=== PATIENT | male | born 1955 | race Caucasian/White ===

== ENCOUNTER 2018-07-03 09:48 | Day surgery (SDC) | payer OTHER ==
[2018-07-02 08:46] VITALS: BMI 38.4
[~2018-07-03 09:48] MED LIST: DEXAMETHASONE SOD PHOSPHATE 10 MG/ML 1 ML VIAL IV ONE; HYDROmorphone 0.5 MG/0.5 ML SYRINGE IVP PRN; LACTATED RINGERS 1,000 ML IV SCH; LIDOCAINE 1% 20 ML VIAL (10MG/ML) FOR IV START INTRADERMA PRN; ONDANSETRON 4 MG/2 ML VIAL IVP ONE; SCOPOLAMINE 1.5MG/72HR PATCH TRANSDERM ONE
[2018-07-03 10:06] VITALS: RESP 16; TEMP 98.6
[2018-07-03] MEDS ORDERED: PROPOFOL 10 MG/ML 20 ML VIAL IV ONE (10:21)
[2018-07-03] MEDS ORDERED: LIDOCAINE 1% INJ 10MG/ML (20 ML MDV) ONE (10:21)
--- NOTE | 2018-07-03 10:38 | P.OP ---
Date of Procedure: 07/03/18 Preoperative Diagnosis: Epigastric pain GERD Postoperative Diagnosis: Gastritis Duodenitis Mild hiatal hernia Procedure(s) Performed: EGD with biopsy Anesthesia: other (Sedation) Surgeon: Shelia Anna Pathology: other (Biopsies of esophagus, antrum, duodenum) Condition: stable Disposition: same day Indications for Procedure: 63-year-old male with complaints of gastroesophageal reflux disease and epigastric pain, sometimes left upper quadrant pain. Plan today is for an upper endoscopy for further evaluation of reflux and to rule out peptic ulcer disease. The patient was excellent the risks, benefits and alternatives to the procedure provided consent prior to attending the endoscopy suite. Operative Findings: Gastritis Duodenitis Mild hiatal hernia Description of Procedure: The patient was brought into the endoscopy suite and placed in the left lateral decubitus position and adequate sedation was achieved. An endoscope was then placed in the oropharynx and advanced under endoscopic visualization. The esophagus was intubated. The endoscope was advanced to the gastric antrum and through the pylorus and up to the third portion of the duodenum. The endoscope was then withdrawn slowly. The first second and third portions of the duodenum did have some inflammatory changes. Biopsies were taken. The pylorus was normal. The antrum was endoscopically noted to have some inflammatory changes. Biopsies were taken. The gastric body distended normally and the gastric folds appeared normal and flattened with insufflation. A retroflexed view of the fundus and GE junction revealed a mild hiatal hernia. The esophagus appeared endoscopically normal and biopsies were taken. Excess air was removed and the endoscope was withdrawn. The patient was assessed and was in satisfactory condition at the termination of the procedure. The patient was transferred to the postanesthesia recovery unit.
[2018-07-03 10:59] VITALS: BP 131/76; PULSE 65
== END 2018-07-03 11:24 | disposition home or self-care (01) ==
LOC: ORWHC2ENDO 09:48
PROVIDERS: ATTEND Surgery
DX: K29.80 Duodenitis without bleeding (principal); K31.9 Disease of stomach and duodenum, unspecified; K21.0 Gastro-esophageal reflux disease with esophagitis; K29.70 Gastritis, unspecified, without bleeding; K44.9 Diaphragmatic hernia without obstruction or gangrene; I10 Essential (primary) hypertension; G47.33 Obstructive sleep apnea (adult) (pediatric); Z79.899 Other long term (current) drug therapy
CPT/HCPCS: 88305; 43239; J2001; J2704

== ENCOUNTER 2019-02-12 08:12 | Day surgery (SDC) | payer OTHER ==
[2019-01-25 16:17] VITALS: BMI 33.6
[~2019-02-12 08:12] MED LIST changes: -DEXAMETHASONE SOD PHOSPHATE 10 MG/ML 1 ML VIAL IV ONE; -HYDROmorphone 0.5 MG/0.5 ML SYRINGE IVP PRN; -ONDANSETRON 4 MG/2 ML VIAL IVP ONE; -SCOPOLAMINE 1.5MG/72HR PATCH TRANSDERM ONE
[2019-02-12 08:40] VITALS: TEMP 97
[2019-02-12] MEDS ORDERED: LIDOCAINE 1% INJ 10MG/ML (20 ML MDV) ONE (09:09)
[2019-02-12] MEDS ORDERED: PROPOFOL 10 MG/ML 20 ML VIAL IV ONE (09:09)
[2019-02-12 10:02] VITALS: PULSE 54
--- NOTE | 2019-02-12 10:19 | P.PCN ---
Date of Procedure: 02/12/19 Description of Procedure: BRIEF HISTORY: 63-year-old male patient who presents for outpatient colonoscopy. The patient reports his last colonoscopy was in 2011 and no polyps were found at that time but he does have a history of polyps in the past. He reports that last EGD was in April 2018. He reports that he has been anemic and colonoscopy was 2 further investigation of the anemia. No abdominal pain, blood per rectum or change in bowel habits reported. PROCEDURE PERFORMED: Colonoscopy with polypectomy, biopsy and tattoo. PREOPERATIVE DIAGNOSIS: Anemia, history of colon polyps, last colonoscopy 2011. ESTIMATED BLOOD LOSS: Minimal. IV sedation per Anesthesia. PROCEDURE: After informed consent was obtained, the patient, was brought into the endoscopy unit. IV sedation was administered by Anesthesia under continuous monitoring. Digital rectal examination was normal. Initially the Olympus CF-190 flexible video colonoscope was then inserted in the rectum, gradually advanced into the cecum without any difficulty. Careful examination was performed as the scope was gradually being withdrawn. Ileocecal valve and the appendiceal orifice were visualized and appeared normal. Prep was fair with liquid and solid stool throughout the whole colon prohibiting complete visualization of mucosa. A flat mass was noted in the ascending colon encompassing approximately 30% of the mucosa with erythema and friability noted highly suggestive of a malignancy. The ascending colon mass was biopsied and tattoos were placed distally and proximally to the mass with a total of 4 mL of ink injected. A 1.2 cm pedunculated sigmoid polyp was removed with hot snare polypectomy. 3 smaller sigmoid polyp polyps measuring 3-6 mm in size were removed with cold snare polypectomy. Pandiverticulosis worse in the sigmoid colon. Mild internal hemorrhoids.. Retroflexion was performed in the rectum and no lesions were seen. The patient tolerated the procedure well. IMPRESSION: Ascending colon mass suspicious for malignancy, biopsied and tattooed. Pedunculated sigmoid polyp removed with hot snare. 3 small sigmoid polyps removed with cold snare. Pandiverticulosis. Mild internal hemorrhoids. RECOMMENDATIONS: Findings of this examination were discussed with the patient and his . Will arrange for referral to surgery service and informed the patient's primary care physician. Await pathology from biopsies.
[2019-02-12 10:21] VITALS: BP 123/79; RESP 18
== END 2019-02-12 11:05 | disposition home or self-care (01) ==
LOC: ORWHC2ENDO 08:12
PROVIDERS: ATTEND Internal Medicine
DX: C18.2 Malignant neoplasm of ascending colon (principal); D12.5 Benign neoplasm of sigmoid colon; K57.30 Diverticulosis of large intestine without perforation or abscess without bleeding; K64.8 Other hemorrhoids; D64.9 Anemia, unspecified; Z86.010 Personal history of colon polyps; I10 Essential (primary) hypertension; J45.909 Unspecified asthma, uncomplicated; G47.33 Obstructive sleep apnea (adult) (pediatric); N42.9 Disorder of prostate, unspecified; K21.9 Gastro-esophageal reflux disease without esophagitis; Z79.82 Long term (current) use of aspirin; Z79.899 Other long term (current) drug therapy; Z98.890 Other specified postprocedural states
CPT/HCPCS: 88305; 45380; 45385; 45381; J2001; J2704; 44404

== ENCOUNTER → 2019-02-20 | Outpatient (CLI) | payer OTHER ==
--- NOTE | 2019-02-20 16:37 | CT ---
EXAMINATION TYPE: CT ChestAbdPelvis w con DATE OF EXAM: 02/20/2019 COMPARISON: None HISTORY: colon ca CT DLP: 1862 mGycm CONTRAST: CT scan of the chest, abdomen and pelvis is performed with Oral Contrast and with IV Contrast, patien t injected with 100 mL of Isovue 300. CT Chest: LUNGS: The lungs are clear and free of infiltrate or atelectasis. No pulmonary nodule or mass is det ected. No pleural effusion or CT evidence of interstitial lung disease. MEDIASTINUM: Thoracic aorta is of normal caliber. The heart is not enlarged. No evidence for media stinal mass or adenopathy. HILAR STRUCTURES: No evidence for mass. No hilar adenopathy is appreciated. OTHER: No significant abnormality. CONTRAST CT ABDOMEN AND PELVIS FINDINGS: LIVER/GB: No calcified gallstones. Hypoattenuating hepatic lesions less than 1 cm in size are too s mall to characterize. They likely reflect small cysts of the lesions are difficult to exclude. Consid er ultrasound correlation. Biliary tree is of normal caliber. PANCREAS: No inflammation. No distinct mass. SPLEEN: No splenic enlargement. No lesion seen. ADRENALS: No nodule. No thickening. KIDNEYS/BLADDER: No hydronephrosis. No nephrolithiasis. Solid appearing mass mid pole right kidney measuring 2.5 cm. Malignancy is not excluded. Further characterization with ultrasound is also advise d. Probable simple cyst midpole left kidney. BOWEL: Normal appendix. Wall thickening mid ascending co caden may reflect patient's site of known malignancy. Adjacent lymph node identified measuring 1.2 cm. No additional left colonic lesion suspected. No obstructive change. No free air. GENITAL ORGANS: Prostate gland enlargement. LYMPH NODES: No greater than 1cm abdominal or pelvic lymph nodes are appreciated. AORTA: No significant abnormality. OSSEOUS STRUCTURES: No significant abnormality is seen. OTHER: No significant additional abnormality is seen. IMPRESSION: 1. Wall thickening mid ascending colon with adjacent lymph node may reflect the patient's known site of malignancy. Correlate clinically. 2. Solid appearing mass of mid pole right kidney. Malignancy is not excluded. Further evaluation with ultrasound is advised. 3. Lesions of the liver too small to appropriately characterize. Ultrasound correlation advised. [place] static disease not excluded.
== END | disposition home or self-care (01) ==
LOC: RADCTMAIN 14:12
PROVIDERS: ATTEND Surgery
DX: N28.89 Other specified disorders of kidney and ureter (principal); C18.9 Malignant neoplasm of colon, unspecified
CPT/HCPCS: 71260; 74177; Q9967

== ENCOUNTER → 2019-02-25 | Outpatient (CLI) | payer OTHER ==
[2019-02-25 07:51] LABS: Anisocytosis Slight; HCT 40.4 % (39.0-53.0); HGB 12.4 gm/dL (13.0-17.5); Hypochromasia Moderate; MCH 24.9 pg (25.0-35.0); MCHC 30.7 g/dL (31.0-37.0); MCV 81.2 fL (80.0-100.0); Mean Platelet Volume 8.1; Microcytosis Slight; Platelet Count 310 k/uL (150-450); RBC 4.98 m/uL (4.30-5.90); RDW 18.8 % (11.5-15.5); WBC 8.7 k/uL (3.8-10.6)
[2019-02-25 08:01] LABS: Potassium 4.6 mmol/L (3.5-5.1)
== END | disposition home or self-care (01) ==
LOC: LABPAT 06:52
PROVIDERS: ATTEND Surgery
DX: Z01.812 Encounter for preprocedural laboratory examination (principal); C18.9 Malignant neoplasm of colon, unspecified; Z79.899 Other long term (current) drug therapy
CPT/HCPCS: 36415; 80051; 85027

== ENCOUNTER 2019-02-28 10:48 | Inpatient (IN) | payer OTHER ==
[~2019-02-28 10:48] MED LIST changes: +ALVIMOPAN 12 MG CAPSULE PO ONE; +DEXAMETHASONE SOD PHOSPHATE 10 MG/ML 1 ML VIAL IV ONE; +HEPARIN SODIUM,PORCINE 5,000 UNIT/ML 1 ML VIAL SQ ONE; +HYDROmorphone 0.5 MG/0.5 ML SYRINGE IVP PRN; +MIDAZOLAM 2 MG/2 ML VIAL IV PRN; +ONDANSETRON 4 MG/2 ML VIAL IVP ONE; +SCOPOLAMINE 1.5MG/72HR PATCH TRANSDERM ONE
[2019-02-28] MEDS ORDERED: ROCURONIUM BROMIDE 10 MG/ML 10 ML VIAL IV ONE (12:22)
[2019-02-28] MEDS ORDERED: GLYCOPYRROLATE 0.2 MG/ML 2 ML VIAL ONE (12:22)
[2019-02-28] MEDS ORDERED: MIDAZOLAM 2 MG/2 ML VIAL ONE (12:22)
[2019-02-28] MEDS ORDERED: SUCCINYLCHOLINE CHLORIDE 100 MG/5 ML SYR IV ONE (12:22)
[2019-02-28] MEDS ORDERED: NEOSTIGMINE 1 MG/ML 10 ML VIAL ONE (12:22)
[2019-02-28] MEDS ORDERED: CHLOROPROCAINE 3% 30 MG/ML 20 ML VIAL ONE (12:22)
[2019-02-28] MEDS ORDERED: PROPOFOL 10 MG/ML 20 ML VIAL IV ONE (12:22)
[2019-02-28] MEDS ORDERED: fentaNYL (PF) 50 MCG/ML 2 ML AMP ONE (12:22)
[2019-02-28] MEDS ORDERED: HYDROmorphone (PF) 1 MG/ML ONE (12:22)
[2019-02-28] MEDS ORDERED: LIDOCAINE 1% INJ 10MG/ML (20 ML MDV) ONE (12:22)
[2019-02-28] MEDS ORDERED: ePHEDrine SULFATE/0.9% NACL/PF 50 MG/5 ML SYRINGE IV ONE (12:22)
[2019-02-28] MEDS: metroNIDAZOLE-NS PMX 500 MG in SALINE 1 100ML.BAG IVPB ONE ×2 (13:00→13:01)
[2019-02-28] MEDS ORDERED: LACTATED RINGERS 1,000 ML IV ONE ×2 (13:06)
[2019-02-28] MEDS ORDERED: NALOXONE 0.4 MG/ML 1 ML VIAL IV PRN (13:49)
[2019-02-28] MEDS: ROPIVACAINE 250 MG, HYDROMORPHONE (PF) 5 MG in SODIUM CHLORIDE 0.9% 200 ML EPIDURAL PRN ×2 (14:36→15:34)
--- NOTE | 2019-02-28 14:39 | P.OP ---
Date of Procedure: 02/28/19 Preoperative Diagnosis: Adenocarcinoma of colon Postoperative Diagnosis: Adenocarcinoma of colon Ascites Procedure(s) Performed: Open right hemicolectomy with anastomosis Anesthesia: GISSELLE Surgeon: Shelia Anna Pathology: other (Right colon, ascitic fluid) Condition: stable Disposition: floor Indications for Procedure: This is a 63-year-old male that presented to the surgery clinic after having a recent colonoscopy with a chronic mass in the right colon. Biopsies were taken and this was proven to be adenocarcinoma. CT of the abdomen and pelvis was also performed that did show a lymph node in the region of this area along with a solid renal mass. The patient was planned to have a right hemicolectomy. He was explained the risks, benefits and alternatives to the procedure did provide consent prior to attending the operating suite. Operative Findings: Mild amount of ascites noted in the abdomen, this was sampled for cytology Tattooed area of right colon was clearly noted Description of Procedure: The patient was brought into the operating suite and placed in the supine position on the operating table. Gen. anesthesia was administered and the patient underwent endotracheal intubation. The patient was then prepped and draped in usual sterile fashion. A midline laparotomy incision was made with a #10 blade scalpel and the subcutaneous tissues were with electrocautery towards the anterior abdominal fascia. The fascia was divided and the fascial incision was carried along the length of the skin incision. The intra-abdominal cavity was then examined. The right colon was clearly visualized and tattoo was noted in the middle aspect of the right colon. Straw- colored Fluid was also noted within the abdomen and this was sampled for cytology. The colon was then mobilized along the line of Toldt down to the right gutter. The entire ileocecal region up to the transverse colon was mobilized into the field off of the retroperitoneum. The right ureter was clearly visualized along with the duodenal sweep. A window was made proximal to the ileocecal valve and a RAYA 75 was fired across the ileum. Next, a second RAYA device was fired across the mid transverse colon just sparing the middle colic artery. The dissection was then carried down along the mesentery, down to the root of the mesentery. The mesentery vessels were ligated using LigaSure device. He remaining mesenteric attachments were divided with the LigaSure device. There was no evidence of any further bleeding. Next, a itsg-mk-oapn anastomosis was performed between the transverse colon and the terminal ileum. An enterotomy and a colotomy were created and a third RAYA-75 device was fired to create a ccrp-ge-ycgr anastomosis. The remaining enterotomy was then closed with a TX 60 stapler. The anastomosis was palpated and was noted to be patent. The TX staple line was imbricated using multiple 3-0 Vicryl sutures. Next, the intramedullary cavity was thoroughly irrigated with saline and the anastomosis was carried into the right gutter. Omentum was used to cover the intestines. The abdominal wall was reapproximated by closing the fascial layer with looped PDS suture. Skin was then closed with skin man. The patient was awakened in the operating suite and taken to postanesthesia care unit in stable condition.
[2019-02-28] MEDS ORDERED: ALBUTEROL NEBULIZED 2.5 MG/3 ML INHALATION PRN (15:25)
[2019-02-28 16:23] VITALS: BMI 33.3
[2019-02-28] MEDS: LACTATED RINGERS 1,000 ML IV SCH ×2 (17:25→23:46)
[2019-02-28] MEDS: METOCLOPRAMIDE 5 MG/ML 2 ML VIAL IVP SCH ×2 (18:07→23:45)
[2019-02-28] MEDS: TAMSULOSIN 0.4 MG CAP.ER.24H PO SCH (21:03)
[2019-02-28] MEDS: FAMOTIDINE 20 MG/2 ML VIAL IV SCH (21:03)
[2019-02-28] MEDS: LORATADINE 10 MG TAB PO SCH (21:04)
[2019-02-28] MEDS: ALVIMOPAN 12 MG CAPSULE PO SCH (21:04)
[2019-03-01] MEDS: LACTATED RINGERS 1,000 ML IV SCH ×3 (06:29→20:31)
[2019-03-01] MEDS: METOCLOPRAMIDE 5 MG/ML 2 ML VIAL IVP SCH ×4 (06:30→23:02)
[2019-03-01 07:16] LABS: Anisocytosis Slight; Basophils % (A) 0 %; Eosinophils % (A) 0 %; HGB 10.7 gm/dL (13.0-17.5); Hypochromasia Slight; Lymphocytes # (A) 2.1 k/uL (1.0-4.8); Lymphocytes % (A) 15 %; MCH 24.3 pg (25.0-35.0); MCHC 30.5 g/dL (31.0-37.0); MCV 79.8 fL (80.0-100.0); Mean Platelet Volume 7.8; Microcytosis Slight; Monocytes # (A) 0.7 k/uL (0-1.0); Monocytes % (A) 6 %; Neutrophils # (A) 10.6 k/uL (1.3-7.7); Neutrophils % (A) 78 %; Platelet Count 283 k/uL (150-450); RBC 4.38 m/uL (4.30-5.90); RDW 18.6 % (11.5-15.5); WBC 13.5 k/uL (3.8-10.6)
[2019-03-01 07:46] LABS: African American GFR (CKD) >90 (>60 ml/min/1.73 sqM); Anion Gap 8 mmol/L; Blood Urea Nitrogen 15 mg/dL (9-20); Calcium 8.9 mg/dL (8.4-10.2); Carbon Dioxide 26 mmol/L (22-30); Chloride 105 mmol/L (98-107); Glucose 101 mg/dL (74-99); Non-African American GFR(CKD) >90 (>60 ml/min/1.73 sqM); Potassium 4.4 mmol/L (3.5-5.1); Sodium 139 mmol/L (137-145)
[2019-03-01] MEDS: TAMSULOSIN 0.4 MG CAP.ER.24H PO SCH ×2 (08:35→20:31)
[2019-03-01] MEDS: ALVIMOPAN 12 MG CAPSULE PO SCH ×2 (08:35→20:31)
[2019-03-01] MEDS: FAMOTIDINE 20 MG/2 ML VIAL IV SCH (08:35)
[2019-03-01] MEDS: MULTIVITAMINS, THERA 1 EACH TAB PO SCH (08:35)
[2019-03-01] MEDS: ASPIRIN 81 MG PO SCH (08:35)
[2019-03-01] MEDS: ENOXAPARIN 40 MG/0.4 ML SYRINGE SQ SCH (08:35)
--- NOTE | 2019-03-01 08:36 | P.PN ---
Progress Note - Text 03/01 659am 63-year-old male status post right hemicolectomy by Dr. Anna. Patient has an epidural catheter for postop pain control with the solution running at 8 mL an hour with a VAS of 1. His only complaint is numbness in his left thigh, I offered to decrease the rate to 6 mL an hour but the patient wants to continue the present rate of infusion.
--- NOTE | 2019-03-01 11:31 | P.PN ---
Subjective Progress Note Date: 03/01/19 Patient seen and examined at bedside. States pain is well-controlled. is also at bedside. Denies any flatus or bowel movement. He has been out of bed to the chair. Sanchez in place. Epidural in place. Objective - Vital Signs Vital signs: Vital Signs Temp 97.9 F 03/01/19 07:23 Pulse 70 03/01/19 07:23 Resp 15 03/01/19 07:23 BP 111/65 03/01/19 07:23 Pulse Ox 96 03/01/19 07:23 Intake & Output 02/28/19 03/01/19 03/01/19 18:59 06:59 18:59 Intake Total 1918 700 180 Output Total 175 650 Balance 1743 50 180 Intake: IV 1918 Oral 700 180 Output: Urine 150 650 Estimated Blood Loss 25 Other: Voiding Method Indwelling Catheter - Constitutional General appearance: Present: cooperative, no acute distress - EENT Eyes: Present: PERRLA - Respiratory Details: No difficulty with respiration - Gastrointestinal Gastrointestinal Comment(s): Soft, appropriate tenderness, nondistended, no rebound, no guarding, midline incision with surgical dressing in place - Psychiatric Psychiatric: Present: A&O x's 3 - Labs CBC & Chem 7: 03/01/19 06:36 03/01/19 06:35 Labs: Abnormal Lab Results - Last 24 Hours (Table) 03/01/19 03/01/19 Range/Units 06:35 06:36 WBC 13.5 H (3.8-10.6) k/uL Hgb 10.7 L (13.0-17.5) gm/dL Hct 35.0 L (39.0-53.0) % MCV 79.8 L (80.0-100.0) fL MCH 24.3 L (25.0-35.0) pg MCHC 30.5 L (31.0-37.0) g/dL RDW 18.6 H (11.5-15.5) % Neutrophils # 10.6 H (1.3-7.7) k/uL Glucose 101 H (74-99) mg/dL Assessment and Plan (1) Colon cancer Narrative/Plan: Postoperative day #1, right hemicolectomy - Increase activity as tolerated - Continue clear liquid diet - Continue Sanchez catheter while epidural is in place - Medical consultation was placed, appreciate recommendations - Progressing slowly Current Visit: Yes Status: Acute Code(s): C18.9 - MALIGNANT NEOPLASM OF COLON, UNSPECIFIED SNOMED Code(s): 475562343
--- NOTE | 2019-03-01 14:34 | P.CONS ---
History of Present Illness - Reason for Consult Leukocytosis - History of Present Illness Patient is a very pleasant 63-year-old gentleman was admitted for ALLERGIC to colectomy for adenocarcinoma of the colon. Patient's x-ray underwent surgery and had end-to-end anastomosis doesn't have a colostomy bag or a drain in place. Patient is feeling well denied any fever chills nausea vomiting patient does have leukocytosis which is reactive in nature. Patient did pass gas did not move his bowel yet. Patient is in couple antidepressant medications which will be held to avoid perioperative hypotension Review of Systems REVIEW OF SYSTEMS: CONSTITUTIONAL: No fever, no malaise, no fatigue. HEENT: No recent visual problems or hearing problems. Denied any sore throat. CARDIOVASCULAR: No chest pain, orthopnea, PND, no palpitations, no syncope. PULMONARY: No shortness of breath, no cough, no hemoptysis. GASTROINTESTINAL: No diarrhea, no nausea, no vomiting, no abdominal pain. NEUROLOGICAL: No headaches, no weakness, no numbness. HEMATOLOGICAL: Denies any bleeding or petechiae. GENITOURINARY: Denies any burning micturition, frequency, or urgency. MUSCULOSKELETAL/RHEUMATOLOGICAL: Denies any joint pain, swelling, or any muscle pain. ENDOCRINE: Denies any polyuria or polydipsia. The rest of the 14-point review of systems is negative. Past Medical History Past Medical History: Asthma, GERD/Reflux, Hypertension, Prostate Disorder, Skin Disorder, Sleep Apnea/CPAP/BIPAP Additional Past Medical History / Comment(s): MILD ASTHMA. GERD RESOLVED. CURRENT LOW HGB, IRON LEVELS. DERMATITIS SCALP COND. USES BIPAP. History of Any Multi-Drug Resistant Organisms: None Reported Past Surgical History: Hernia Repair Additional Past Surgical History / Comment(s): BILAT BIG TOE FUSIONS. NELLY EYE RADIAL KERATOTOMY. HERNIA, AGE 3. BILAT CTR. COLONOSCOPY. EGD Past Anesthesia/Blood Transfusion Reactions: No Reported Reaction Additional Past Anesthesia/Blood Transfusion Reaction / Comm: NO BLOOD TRANSFUSION Past Psychological History: No Psychological Hx Reported Smoking Status: Former smoker Past Alcohol Use History: Occasional Additional Past Alcohol Use History / Comment(s): OCC SMOKED A PIPE, QUIT 1978 Past Drug Use History: None Reported - Past Family History Mother Family Medical History: Cancer Father Family Medical History: Cancer Daughter(s) Family Medical History: Cancer Brother(s) Family Medical History: Cancer Medications and Allergies Home Medications Medication Instructions Recorded Confirmed Type Fexofenadine HCl [[place]aria Allergy] 180 mg PO HS 07/02/18 02/28/19 History Tamsulosin HCl [Flomax] 0.4 mg PO BID 07/02/18 02/28/19 History amLODIPine [Norvasc] 10 mg PO QAM 07/02/18 02/28/19 History Albuterol Sulfate [Proventil Hfa] 1 - 2 puff INHALATION RT-Q6H PRN 01/25/19 02/28/19 History Ascorbic Acid [Vitamin C] 1,000 mg PO DAILY 01/25/19 02/28/19 History Aspirin [Adult Low Dose Aspirin EC] 81 mg PO DAILY 01/25/19 02/28/19 History B Complex-Vit C-Vit E-Zinc [Z-Bec] 1 tab PO DAILY 01/25/19 02/28/19 History Enalapril [Vasotec] 5 mg PO HS 01/25/19 02/28/19 History Ferrous Sulfate [Feosol] 325 mg PO DAILY 01/25/19 02/28/19 History Fiber Tabs 2 tab PO DAILY 01/25/19 02/28/19 History Multivitamins, Thera [Multivitamin 1 tab PO DAILY 01/25/19 02/28/19 History (formulary)] Foaming Acne 10% Topical 1 applic TOPICAL DAILY 02/26/19 02/28/19 History Mupirocin Calcium 2% Cream 1 applic TOPICAL BID 02/26/19 02/28/19 History [Bactroban 2% Cream] Allergies Allergy/AdvReac Type Severity Reaction Status Date / Time Pork/Porcine Containing Allergy Nausea & Verified 02/28/19 15:10 Products Vomiting & [Pork] Diarrhea tomato Allergy Nausea & Verified 02/28/19 15:10 Vomiting & Diarrhea Physical Exam Vitals: Vital Signs Temp Pulse Pulse Resp BP Pulse Ox 03/01/19 08:00 15 03/01/19 07:23 97.9 F 70 15 111/65 96 03/01/19 02:13 98.0 F 79 18 114/57 94 L 02/28/19 20:00 98.5 F 77 18 118/58 94 L 02/28/19 19:45 18 02/28/19 19:04 96 02/28/19 17:45 85 123/75 02/28/19 17:30 86 122/75 02/28/19 17:15 81 133/57 02/28/19 17:00 85 116/70 02/28/19 16:45 85 117/76 02/28/19 16:30 85 123/65 02/28/19 16:15 81 118/74 02/28/19 16:00 98.0 F 77 16 114/69 93 L 02/28/19 15:26 71 16 109/56 97 02/28/19 15:10 69 16 107/58 96 02/28/19 14:56 68 16 108/58 97 02/28/19 14:41 66 16 108/57 95 Intake and Output 02/28/19 03/01/19 03/01/19 22:59 06:59 14:59 Intake Total 768 200 180 Output Total 510 079 2850 Balance Intake: IV 268 Oral 500 200 180 Output: Urine 177 053 8792 Other: Voiding Method Indwelling Catheter Indwelling Catheter Indwelling Catheter PHYSICAL EXAMINATION: GENERAL: The patient is alert and oriented x3, not in any acute distress. Well developed, well nourished. HEENT: Pupils are round and equally reacting to light. EOMI. No scleral icterus. No conjunctival pallor. Normocephalic, atraumatic. No pharyngeal erythema. No thyromegaly. CARDIOVASCULAR: S1 and S2 present. No murmurs, rubs, or gallops. PULMONARY: Chest is clear to auscultation, no wheezing or crackles. ABDOMEN: Soft, nontender, nondistended, No palpable organomegaly. Patient has an epidural in place does have bowel sounds are sluggish, abdominal binder in pl roberto MUSCULOSKELETAL: No joint swelling or deformity. EXTREMITIES: No cyanosis, clubbing, or pedal edema. NEUROLOGICAL: Gross neurological examination did not reveal any focal deficits. SKIN: No rashes. Results CBC & Chem 7: 03/01/19 06:36 03/01/19 06:35 Labs: Abnormal Lab Results - Last 24 Hours (Table) 03/01/19 03/01/19 Range/Units 06:35 06:36 WBC 13.5 H (3.8-10.6) k/uL Hgb 10.7 L (13.0-17.5) gm/dL Hct 35.0 L (39.0-53.0) % MCV 79.8 L (80.0-100.0) fL MCH 24.3 L (25.0-35.0) pg MCHC 30.5 L (31.0-37.0) g/dL RDW 18.6 H (11.5-15.5) % Neutrophils # 10.6 H (1.3-7.7) k/uL Glucose 101 H (74-99) mg/dL Assessment and Plan Plan: -Leukocytosis reactive without any evidence of infection -Hypertension: Commuter hold off on lisinopril and amlodipine to prevent perioperative hypotension -Gastroesophageal reflux disease -Sleep apnea continue with CPAP machine -Benign prostatic hypertrophy -Status post hemicolectomy with end anastomosis pain management due to prophylaxis per primary service
[2019-03-01] MEDS: ROPIVACAINE 250 MG, HYDROMORPHONE (PF) 5 MG in SODIUM CHLORIDE 0.9% 200 ML EPIDURAL PRN (15:07)
[2019-03-01] MEDS: diphenhydrAMINE 50 MG/ML 1 ML VIAL IVP PRN (18:14)
[2019-03-01] MEDS: LORATADINE 10 MG TAB PO SCH (20:31)
[2019-03-01] MEDS: FAMOTIDINE 20 MG TAB PO SCH (20:31)
[2019-03-01] MEDS ORDERED: LISINOPRIL 10 MG TAB PO SCH (21:00)
[2019-03-02] MEDS: METOCLOPRAMIDE 5 MG/ML 2 ML VIAL IVP SCH ×4 (05:40→23:08)
[2019-03-02] MEDS: LACTATED RINGERS 1,000 ML IV SCH ×2 (05:41→15:52)
[2019-03-02 06:54] LABS: Anisocytosis Slight; Basophils # (A) 0.1 k/uL (0-0.2); Basophils % (A) 1 %; Eosinophils # (A) 0.2 k/uL (0-0.7); Eosinophils % (A) 2 %; HCT 38.6 % (39.0-53.0); HGB 11.9 gm/dL (13.0-17.5); Hypochromasia Moderate; Lymphocytes # (A) 3.1 k/uL (1.0-4.8); Lymphocytes % (A) 27 %; MCH 25.1 pg (25.0-35.0); MCHC 30.9 g/dL (31.0-37.0); MCV 81.3 fL (80.0-100.0); Mean Platelet Volume 8.2; Microcytosis Slight; Monocytes # (A) 0.7 k/uL (0-1.0); Monocytes % (A) 6 %; Neutrophils # (A) 7.3 k/uL (1.3-7.7); Neutrophils % (A) 63 %; Platelet Count 280 k/uL (150-450); RBC 4.75 m/uL (4.30-5.90); RDW 18.4 % (11.5-15.5); WBC 11.5 k/uL (3.8-10.6)
[2019-03-02 07:16] LABS: African American GFR (CKD) >90 (>60 ml/min/1.73 sqM); Anion Gap 5 mmol/L; Blood Urea Nitrogen 9 mg/dL (9-20); Carbon Dioxide 32 mmol/L (22-30); Chloride 102 mmol/L (98-107); Glucose 94 mg/dL (74-99); Non-African American GFR(CKD) >90 (>60 ml/min/1.73 sqM); Potassium 4.5 mmol/L (3.5-5.1); Sodium 139 mmol/L (137-145)
[2019-03-02] MEDS: ASPIRIN 81 MG PO SCH (08:09)
[2019-03-02] MEDS: ALVIMOPAN 12 MG CAPSULE PO SCH ×2 (08:09→19:55)
[2019-03-02] MEDS: MULTIVITAMINS, THERA 1 EACH TAB PO SCH (08:10)
[2019-03-02] MEDS: TAMSULOSIN 0.4 MG CAP.ER.24H PO SCH ×2 (08:10→19:55)
[2019-03-02] MEDS: ENOXAPARIN 40 MG/0.4 ML SYRINGE SQ SCH (08:10)
[2019-03-02] MEDS: FAMOTIDINE 20 MG TAB PO SCH ×2 (08:10→19:55)
[2019-03-02] MEDS ORDERED: amLODIPine 10 MG TAB PO SCH (09:00)
--- NOTE | 2019-03-02 09:19 | P.PN ---
Subjective Progress Note Date: 03/02/19 Patient seen and examined at bedside. States he has ambulated. Abdominal pain is well-controlled. States he had a very mild amount of flatus. Denies nausea vomiting. Tolerating clear liquid diet. Sanchez catheter and epidural in place. Objective - Vital Signs Vital signs: Vital Signs Temp 99.0 F 03/02/19 01:30 Pulse 69 03/02/19 01:30 Resp 18 03/02/19 01:30 BP 119/69 03/02/19 01:30 Pulse Ox 95 03/02/19 07:28 Intake & Output 03/01/19 03/02/19 03/02/19 18:59 06:59 18:59 Intake Total 540 240 Output Total 2200 2200 Balance -1660 -2200 240 Intake: Oral 540 240 Output: Urine 2200 2200 Other: Voiding Method Indwelling Catheter - Constitutional General appearance: Present: cooperative, no acute distress - EENT Eyes: Present: PERRLA - Respiratory Details: No difficulty with respiration - Gastrointestinal Gastrointestinal Comment(s): Soft, appropriate tenderness, nondistended, no rebound, no guarding, midline incision site with surgical dressing in place - Psychiatric Psychiatric: Present: A&O x's 3 - Labs CBC & Chem 7: 03/02/19 06:26 03/02/19 06:26 Labs: Abnormal Lab Results - Last 24 Hours (Table) 03/02/19 03/02/19 Range/Units 06:26 06:26 WBC 11.5 H (3.8-10.6) k/uL Hgb 11.9 L (13.0-17.5) gm/dL Hct 38.6 L (39.0-53.0) % MCHC 30.9 L (31.0-37.0) g/dL RDW 18.4 H (11.5-15.5) % Carbon Dioxide 32 H (22-30) mmol/L Assessment and Plan (1) Colon cancer Narrative/Plan: Postoperative day #2, right hemicolectomy - Increase activity as tolerated - Continue clear liquid diet - Await more bowel function - Decrease IV fluids - Continue Sanchez catheter while epidural is in place - Medical consultation was placed, appreciate recommendations - Progressing slowly Current Visit: Yes Status: Acute Code(s): C18.9 - MALIGNANT NEOPLASM OF COLON, UNSPECIFIED SNOMED Code(s): 871908404
[2019-03-02] MEDS: diphenhydrAMINE 50 MG/ML 1 ML VIAL IVP PRN ×2 (13:09→21:33)
--- NOTE | 2019-03-02 13:23 | P.PN ---
Subjective Patient is clinically doing well no overnight events patient blood pressure is stable. Constitutional: Denied any fatigue denied any fever. Cardio vascular: denied any chest pain, palpitations Gastrointestinal denied any nausea vomiting Pulmonary: Denied any shortness of breath cough Neurologic denied any new focal deficits All inpatient medications were reviewed and appropriate changes in these medications as dictated in the interval history and assessment and plan. Objective - Vital Signs Vital signs: Vital Signs Temp 99.0 F 03/02/19 01:30 Pulse 69 03/02/19 01:30 Resp 18 03/02/19 01:30 BP 119/69 03/02/19 01:30 Pulse Ox 95 03/02/19 07:28 Intake & Output 03/01/19 03/02/19 03/02/19 18:59 06:59 18:59 Intake Total 540 630 Output Total 2200 2200 2500 Balance -1660 -2200 -1870 Intake: Oral 540 630 Output: Urine 2200 2200 2500 Other: Voiding Method Indwelling Catheter Indwelling Catheter - Exam PHYSICAL EXAMINATION: GENERAL: The patient is alert and oriented x3, not in any acute distress. Well developed, well nourished. HEENT: Pupils are round and equally reacting to light. EOMI. No scleral icterus. No conjunctival pallor. Normocephalic, atraumatic. No pharyngeal erythema. No thyromegaly. CARDIOVASCULAR: S1 and S2 present. No murmurs, rubs, or gallops. PULMONARY: Chest is clear to auscultation, no wheezing or crackles. ABDOMEN: Soft, nontender, nondistended, normoactive bowel sounds. No palpable organomegaly. Abdominal binder in place surgical site areas appears to be clean without any infection MUSCULOSKELETAL: No joint swelling or deformity. EXTREMITIES: No cyanosis, clubbing, or pedal edema. NEUROLOGICAL: Gross neurological examination did not reveal any focal deficits. SKIN: No rashes. - Labs CBC & Chem 7: 03/02/19 06:26 03/02/19 06:26 Labs: Abnormal Lab Results - Last 24 Hours (Table) 03/02/19 03/02/19 Range/Units 06:26 06:26 WBC 11.5 H (3.8-10.6) k/uL Hgb 11.9 L (13.0-17.5) gm/dL Hct 38.6 L (39.0-53.0) % MCHC 30.9 L (31.0-37.0) g/dL RDW 18.4 H (11.5-15.5) % Carbon Dioxide 32 H (22-30) mmol/L Assessment and Plan Plan: -Leukocytosis reactive without any evidence of infection -Hypertension: Commuter hold off on lisinopril and amlodipine to prevent perioperative hypotension -Gastroesophageal reflux disease -Sleep apnea continue with CPAP machine -Benign prostatic hypertrophy -Status post hemicolectomy with end anastomosis pain management due to prophylaxis per primary service
[2019-03-02] MEDS: ROPIVACAINE 250 MG, HYDROMORPHONE (PF) 5 MG in SODIUM CHLORIDE 0.9% 200 ML EPIDURAL PRN (17:26)
--- NOTE | 2019-03-02 19:33 | P.PN ---
Progress Note - Text 03/02/2019 1927hrs 53-year-old male status post exploratory lap by Dr. Anna. Patient has an epidural catheter for postop pain control with the solution running at 8 mL an hour with a VAS of 1, he still has complains of numbness in his left high but does not work decrease the rate as he is very happy with this pain control. Plan to DC the epidural in a.m.
[2019-03-02] MEDS: LORATADINE 10 MG TAB PO SCH (19:55)
[2019-03-03] MEDS: LACTATED RINGERS 1,000 ML IV SCH ×2 (05:53→15:13)
[2019-03-03] MEDS: METOCLOPRAMIDE 5 MG/ML 2 ML VIAL IVP SCH ×3 (05:53→18:11)
[2019-03-03 07:32] LABS: African American GFR (CKD) >90 (>60 ml/min/1.73 sqM); Anion Gap 10 mmol/L; Blood Urea Nitrogen 10 mg/dL (9-20); Calcium 9.2 mg/dL (8.4-10.2); Carbon Dioxide 28 mmol/L (22-30); Chloride 102 mmol/L (98-107); Glucose 90 mg/dL (74-99); Non-African American GFR(CKD) >90 (>60 ml/min/1.73 sqM); Sodium 140 mmol/L (137-145)
[2019-03-03 07:41] LABS: Anisocytosis Slight; Basophils # (A) 0.1 k/uL (0-0.2); Basophils % (A) 1 %; Eosinophils # (A) 0.4 k/uL (0-0.7); Eosinophils % (A) 3 %; HCT 41.3 % (39.0-53.0); HGB 12.6 gm/dL (13.0-17.5); Hypochromasia Moderate; Lymphocytes # (A) 3.3 k/uL (1.0-4.8); Lymphocytes % (A) 25 %; MCH 25.1 pg (25.0-35.0); MCHC 30.4 g/dL (31.0-37.0); MCV 82.5 fL (80.0-100.0); Microcytosis Slight; Monocytes # (A) 0.8 k/uL (0-1.0); Monocytes % (A) 6 %; Neutrophils # (A) 8.4 k/uL (1.3-7.7); Neutrophils % (A) 64 %; Platelet Count 288 k/uL (150-450); RBC 5.01 m/uL (4.30-5.90); RDW 18.8 % (11.5-15.5); WBC 13.1 k/uL (3.8-10.6)
[2019-03-03] MEDS: MULTIVITAMINS, THERA 1 EACH TAB PO SCH (08:42)
[2019-03-03] MEDS: TAMSULOSIN 0.4 MG CAP.ER.24H PO SCH ×2 (08:42→20:21)
[2019-03-03] MEDS: ASPIRIN 81 MG PO SCH (08:42)
[2019-03-03] MEDS: FAMOTIDINE 20 MG TAB PO SCH ×2 (08:42→20:22)
[2019-03-03] MEDS: ALVIMOPAN 12 MG CAPSULE PO SCH ×2 (08:42→20:22)
[2019-03-03] MEDS: ENOXAPARIN 40 MG/0.4 ML SYRINGE SQ SCH (08:42)
--- NOTE | 2019-03-03 09:21 | P.PN ---
Subjective Progress Note Date: 03/03/19 Patient seen and examined at bedside. He has been ambulating in the hallway. States he has been having flatus. Denies nausea or vomiting. Denies significant abdominal pain. Afebrile. Denies any significant cough. Objective - Vital Signs Vital signs: Vital Signs Temp 98.1 F 03/03/19 02:00 Pulse 67 03/03/19 07:55 Resp 17 03/03/19 07:55 BP 130/76 03/03/19 07:41 Pulse Ox 98 03/03/19 07:41 Intake & Output 03/02/19 03/03/19 03/03/19 18:59 06:59 18:59 Intake Total 1080.533 300 390 Output Total 2500 1800 Balance -1419.467 -1500 390 Intake: Intake, IV Titration 210.533 200 Amount Lactated Ringers 1,000 ml 200 @ 75 mls/hr IV .[id number] [facility] Rx#:[id number] Ropivacaine 250 mg 210.533 Hydromorphone (Pf) 5 mg In Sodium Chloride 0.9% 200 ml @ Per Protocol EPIDURAL .Q0M PRN Rx#: [id number] Oral 870 100 390 Output: Urine 2500 1800 Uretheral (Sanchez) 1800 Other: Voiding Method Indwelling Catheter Indwelling Catheter Indwelling Catheter - Constitutional General appearance: Present: cooperative, no acute distress - EENT Eyes: Present: PERRLA - Respiratory Details: No difficulty with respiration - Gastrointestinal Gastrointestinal Comment(s): Soft, appropriate midline tenderness, nondistended, no rebound, no guarding, incision site is clean, dry and intact with man in place and no obvious drainage and no erythema - Psychiatric Psychiatric: Present: A&O x's 3 - Labs CBC & Chem 7: 03/03/19 06:43 03/03/19 06:43 Labs: Abnormal Lab Results - Last 24 Hours (Table) 03/03/19 Range/Units 06:43 WBC 13.1 H (3.8-10.6) k/uL Hgb 12.6 L (13.0-17.5) gm/dL MCHC 30.4 L (31.0-37.0) g/dL RDW 18.8 H (11.5-15.5) % Neutrophils # 8.4 H (1.3-7.7) k/uL Assessment and Plan (1) Colon cancer Narrative/Plan: Postoperative day #3, right hemicolectomy - Increase activity as tolerated - Advance to full liquid diet as the patient has had flatus - Await more bowel function - Some elevation in leukocytosis today, the patient has no overt signs of infection. He is afebrile, no tachycardia. He denies any significant cough. We will continue to monitor. - Continue Sanchez catheter while epidural is in place, epidural removal per ane sthesia - Medical consultation was placed, appreciate recommendations - Progressing slowly Current Visit: Yes Status: Acute Code(s): C18.9 - MALIGNANT NEOPLASM OF COLON, UNSPECIFIED SNOMED Code(s): 377699763
[2019-03-03 09:49] LABS: Appearance,Urine Clear (Clear); Bilirubin,Urine Negative (Negative); Blood,Urine Trace (Negative); Color,Urine Light Yellow; Glucose,Urine (UA) Negative (Negative); Ketones,Urine Negative (Negative); Leukocyte Esterase,Urine Trace (Negative); Mucus,Urine Rare /hpf; Nitrite,Urine Negative (Negative); PH, Urine 7.5 (5.0-8.0); Protein,Urine Negative (Negative); RBC,Urine 9 /hpf (0-5); Specific Gravity,Urine 1.007 (1.001-1.035); Squamous Epithelial Cell,Urine <1 /hpf (0-4); Urobilinogen,Urine <2.0 mg/dL (<2.0); WBC,Urine 3 /hpf (0-5)
--- NOTE | 2019-03-03 09:57 | XR ---
EXAMINATION TYPE: XR chest 1V DATE OF EXAM: 03/03/2019 HISTORY: post-op, atelectasis. REFERENCE: NONE. FINDINGS: The lungs are clear. Pleural space are clear. The heart is not enlarged. IMPRESSION: NORMAL CHEST
--- NOTE | 2019-03-03 13:07 | P.PN ---
Subjective Patient is clinically doing well no overnight events patient blood pressure is stable. 03/03/2019 Patient is feeling better did pass gas did not move his bowel get, no symptoms of UTI or cough. Patient had white blood cell count went up because of that reason. Urine is not impressive for urinary tract infection chest x-ray did not show any pneumonia probably it's better to repeat the CBC tomorrow no fever at this time no evidence of infection at this time. Patient will be resumed on his BOUCHRA inhibitor can you to hold off on amlodipine Constitutional: Denied any fatigue denied any fever. Cardio vascular: denied any chest pain, palpitations Gastrointestinal denied any nausea vomiting Pulmonary: Denied any shortness of breath cough Neurologic denied any new focal deficits All inpatient medications were reviewed and appropriate changes in these medications as dictated in the interval history and assessment and plan. Objective - Vital Signs Vital signs: Vital Signs Temp 97.8 F 03/03/19 09:30 Pulse 67 03/03/19 07:55 Resp 17 03/03/19 07:55 BP 130/76 03/03/19 07:41 Pulse Ox 98 03/03/19 07:41 Intake & Output 03/02/19 03/03/19 03/03/19 18:59 06:59 18:59 Intake Total 1080.533 300 390 Output Total 2500 1800 Balance -1419.467 -1500 390 Intake: Intake, IV Titration 210.533 200 Amount Lactated Ringers 1,000 ml 200 @ 75 mls/hr IV .[id number] [facility] Rx#:[id number] Ropivacaine 250 mg 210.533 Hydromorphone (Pf) 5 mg In Sodium Chloride 0.9% 200 ml @ Per Protocol EPIDURAL .Q0M PRN Rx#: [id number] Oral 870 100 390 Output: Urine 2500 1800 Uretheral (Sanchez) 1800 Other: Voiding Method Indwelling Catheter Indwelling Catheter Indwelling Catheter - Exam PHYSICAL EXAMINATION: GENERAL: The patient is alert and oriented x3, not in any acute distress. Well developed, well nourished. HEENT: Pupils are round and equally reacting to light. EOMI. No scleral icterus. No conjunctival pallor. Normocephalic, atraumatic. No pharyngeal erythema. No thyromegaly. CARDIOVASCULAR: S1 and S2 present. No murmurs, rubs, or gallops. PULMONARY: Chest is clear to auscultation, no wheezing or crackles. ABDOMEN: Soft, nontender, nondistended, normoactive bowel sounds. No palpable organomegaly. Abdominal binder in place surgical site areas appears to be clean without any infection MUSCULOSKELETAL: No joint swelling or deformity. EXTREMITIES: No cyanosis, clubbing, or pedal edema. NEUROLOGICAL: Gross neurological examination did not reveal any focal deficits. SKIN: No rashes. - Labs CBC & Chem 7: 03/03/19 06:43 03/03/19 06:43 Labs: Abnormal Lab Results - Last 24 Hours (Table) 03/03/19 03/03/19 Range/Units 06:43 09:33 WBC 13.1 H (3.8-10.6) k/uL Hgb 12.6 L (13.0-17.5) gm/dL MCHC 30.4 L (31.0-37.0) g/dL RDW 18.8 H (11.5-15.5) % Neutrophils # 8.4 H (1.3-7.7) k/uL Urine Blood Trace H (Negative) Ur Leukocyte Esterase Trace H (Negative) Urine RBC 9 H (0-5) /hpf Urine Mucus Rare H (None) /hpf Assessment and Plan Plan: -Leukocytosis reactive without any evidence of infection, further management as mentioned above -Hypertension: Management as mentioned in the interval history -Gastroesophageal reflux disease -Sleep apnea continue with CPAP machine -Benign prostatic hypertrophy -Status post hemicolectomy with end anastomosis pain management due to prophylaxis per primary service
--- NOTE | 2019-03-03 16:48 | P.PN ---
Progress Note - Text 03/03 1601 hr 63-year-old male status post exploratory lap by Dr. Anna. Patient has an epidural catheter for postop pain control with the solution running at 8 mL an hour with a VAS of 1, numbness in his left high has disappeared. Patient is doing well DC epidural.
[2019-03-03] MEDS ORDERED: HYDROmorphone 1 MG/ML 1 ML SYRINGE IM PRN (17:31)
[2019-03-03] MEDS: LORATADINE 10 MG TAB PO SCH (20:21)
[2019-03-03] MEDS: HYDROcodone/APAP 5-325MG 1 EACH TAB PO PRN (20:27)
[2019-03-04] MEDS: METOCLOPRAMIDE 5 MG/ML 2 ML VIAL IVP SCH ×2 (00:05→03:49)
[2019-03-04] MEDS: HYDROcodone/APAP 5-325MG 1 EACH TAB PO PRN ×4 (01:49→20:40)
[2019-03-04] MEDS: LACTATED RINGERS 1,000 ML IV SCH ×2 (06:30→19:09)
[2019-03-04 07:04] LABS: Anisocytosis Slight; Basophils % (A) 0 %; Eosinophils # (A) 0.4 k/uL (0-0.7); Eosinophils % (A) 4 %; HCT 39.9 % (39.0-53.0); HGB 12.9 gm/dL (13.0-17.5); Lymphocytes # (A) 2.7 k/uL (1.0-4.8); Lymphocytes % (A) 25 %; MCH 25.1 pg (25.0-35.0); MCHC 32.2 g/dL (31.0-37.0); Mean Platelet Volume 7.9; Microcytosis Slight; Monocytes # (A) 0.6 k/uL (0-1.0); Monocytes % (A) 6 %; Neutrophils # (A) 6.8 k/uL (1.3-7.7); Neutrophils % (A) 64 %; Platelet Count 306 k/uL (150-450); RBC 5.11 m/uL (4.30-5.90); RDW 18.4 % (11.5-15.5); WBC 10.6 k/uL (3.8-10.6)
[2019-03-04 07:19] LABS: African American GFR (CKD) >90 (>60 ml/min/1.73 sqM); Anion Gap 11 mmol/L; Blood Urea Nitrogen 10 mg/dL (9-20); Calcium 9.5 mg/dL (8.4-10.2); Carbon Dioxide 27 mmol/L (22-30); Chloride 103 mmol/L (98-107); Glucose 92 mg/dL (74-99); Non-African American GFR(CKD) >90 (>60 ml/min/1.73 sqM); Potassium 3.6 mmol/L (3.5-5.1); Sodium 141 mmol/L (137-145)
[2019-03-04] MEDS: ENOXAPARIN 40 MG/0.4 ML SYRINGE SQ SCH (07:44)
[2019-03-04] MEDS: ALVIMOPAN 12 MG CAPSULE PO SCH (07:45)
[2019-03-04] MEDS: FAMOTIDINE 20 MG TAB PO SCH ×2 (07:45→20:39)
[2019-03-04] MEDS: ASPIRIN 81 MG PO SCH (07:45)
[2019-03-04] MEDS: TAMSULOSIN 0.4 MG CAP.ER.24H PO SCH ×2 (07:45→20:40)
[2019-03-04] MEDS: MULTIVITAMINS, THERA 1 EACH TAB PO SCH (07:45)
--- NOTE | 2019-03-04 08:12 | P.PN ---
Subjective Progress Note Date: 03/04/19 Patient seen and examined at bedside. Has had multiple bowel movements overnight. States he did have some incontinence with bowel movements. Denies nausea vomiting. Tolerating diet. Ambulating. Epidural and Sanchez catheter were removed yesterday afternoon. Objective - Vital Signs Vital signs: Vital Signs Temp 98.8 F 03/04/19 06:43 Pulse 57 L 03/04/19 06:43 Resp 18 03/04/19 06:43 BP 143/78 03/04/19 06:43 Pulse Ox 95 03/04/19 06:43 Intake & Output 03/03/19 03/04/19 03/04/19 18:59 06:59 18:59 Intake Total 1545 300 Output Total 1650 100 Balance -105 200 Intake: Intake, IV Titration 525 Amount Lactated Ringers 1,000 ml 525 @ 75 mls/hr IV .[id number] [facility] Rx#:[id number] Oral 1020 300 Output: Urine 1650 100 Uretheral (Sanchez) 700 Other: Voiding Method Indwelling Catheter Indwelling Catheter # Voids 1,000 - Constitutional General appearance: Present: cooperative, no acute distress - EENT Eyes: Present: PERRLA - Respiratory Details: No difficulty with respiration - Gastrointestinal Gastrointestinal Comment(s): Soft, appropriate tenderness, nondistended, no rebound, no guarding, incision site clean, dry and intact with man in place, no surrounding erythema - Psychiatric Psychiatric: Present: A&O x's 3 - Labs CBC & Chem 7: 03/04/19 06:37 03/04/19 06:37 Labs: Abnormal Lab Results - Last 24 Hours (Table) 03/03/19 03/04/19 Range/Units 09:33 06:37 Hgb 12.9 L (13.0-17.5) gm/dL MCV 78.0 L (80.0-100.0) fL RDW 18.4 H (11.5-15.5) % Urine Blood Trace H (Negative) Ur Leukocyte Esterase Trace H (Negative) Urine RBC 9 H (0-5) /hpf Urine Mucus Rare H (None) /hpf Assessment and Plan (1) Colon cancer Narrative/Plan: Postoperative day #4, right hemicolectomy - Increase activity as tolerated - Advance to soft diet - Will discontinue Reglan and entereg as the patient is having bowel function. - Leukocytosis resolved - Pain control - Will obtain ultrasound of kidney and liver as the patient did have lesions noted on CT. - Medical consultation was placed, appreciate recommendations - Progressing slowly - Discharge planning in 24 hours Current Visit: Yes Status: Acute Code(s): C18.9 - MALIGNANT NEOPLASM OF COLON, UNSPECIFIED SNOMED Code(s): 150424922
[2019-03-04] MEDS: amLODIPine 5 MG TAB PO SCH (11:09)
--- NOTE | 2019-03-04 12:04 | P.PN ---
Subjective Patient is clinically doing well no overnight events patient blood pressure is stable. 03/03/2019 Patient is feeling better did pass gas did not move his bowel get, no symptoms of UTI or cough. Patient had white blood cell count went up because of that reason. Urine is not impressive for urinary tract infection chest x-ray did not show any pneumonia probably it's better to repeat the CBC tomorrow no fever at this time no evidence of infection at this time. Patient will be resumed on his BOUCHRA inhibitor can you to hold off on amlodipine 03/04/2019 Patient's white blood cell count improved no evidence of infection at this time. Patient was started back on low-dose of amlodipine and the IV fluids will be discontinued. Constitutional: Denied any fatigue denied any fever. Cardio vascular: denied any chest pain, palpitations Gastrointestinal denied any nausea vomiting Pulmonary: Denied any shortness of breath cough Neurologic denied any new focal deficits All inpatient medications were reviewed and appropriate changes in these medica tions as dictated in the interval history and assessment and plan. Objective - Vital Signs Vital signs: Vital Signs Temp 98.8 F 03/04/19 06:43 Pulse 57 L 03/04/19 06:43 Resp 18 03/04/19 06:43 BP 143/78 03/04/19 06:43 Pulse Ox 95 03/04/19 06:43 Intake & Output 03/03/19 03/04/19 03/04/19 18:59 06:59 18:59 Intake Total 1545 300 Output Total 1650 100 Balance -105 200 Intake: Intake, IV Titration 525 Amount Lactated Ringers 1,000 ml 525 @ 75 mls/hr IV .[id number] [facility] Rx#:[id number] Oral 1020 300 Output: Urine 1650 100 Uretheral (Sanchez) 700 Other: Voiding Method Indwelling Catheter Indwelling Catheter # Voids 1,000 2 - Exam PHYSICAL EXAMINATION: GENERAL: The patient is alert and oriented x3, not in any acute distress. Well developed, well nourished. HEENT: Pupils are round and equally reacting to light. EOMI. No scleral icterus. No conjunctival pallor. Normocephalic, atraumatic. No pharyngeal erythema. No thyromegaly. CARDIOVASCULAR: S1 and S2 present. No murmurs, rubs, or gallops. PULMONARY: Chest is clear to auscultation, no wheezing or crackles. ABDOMEN: Soft, nontender, nondistended, normoactive bowel sounds. No palpable organomegaly. Abdominal binder in place surgical site areas appears to be clean without any infection MUSCULOSKELETAL: No joint swelling or deformity. EXTREMITIES: No cyanosis, clubbing, or pedal edema. NEUROLOGICAL: Gross neurological examination did not reveal any focal deficits. SKIN: No rashes. - Labs CBC & Chem 7: 03/04/19 06:37 03/04/19 06:37 Labs: Abnormal Lab Results - Last 24 Hours (Table) 03/04/19 Range/Units 06:37 Hgb 12.9 L (13.0-17.5) gm/dL MCV 78.0 L (80.0-100.0) fL RDW 18.4 H (11.5-15.5) % Assessment and Plan Plan: -Leukocytosis reactive without any evidence of infection, further management as mentioned above -Hypertension: Management as mentioned in the interval history -Gastroesophageal reflux disease -Sleep apnea continue with CPAP machine -Benign prostatic hypertrophy -Status post hemicolectomy with end anastomosis pain management due to prophylaxis per primary service
[2019-03-04] MEDS: LORATADINE 10 MG TAB PO SCH (20:39)
[2019-03-05] MEDS: HYDROcodone/APAP 5-325MG 1 EACH TAB PO PRN ×2 (02:58→09:06)
[2019-03-05 07:29] VITALS: RESP 16
[2019-03-05 07:46] LABS: Anisocytosis Slight; Basophils % (A) 0 %; Eosinophils # (A) 0.5 k/uL (0-0.7); Eosinophils % (A) 5 %; HCT 36.3 % (39.0-53.0); HGB 11.8 gm/dL (13.0-17.5); Lymphocytes # (A) 2.5 k/uL (1.0-4.8); Lymphocytes % (A) 27 %; MCH 25.4 pg (25.0-35.0); MCHC 32.5 g/dL (31.0-37.0); MCV 78.2 fL (80.0-100.0); Mean Platelet Volume 7.9; Microcytosis Slight; Monocytes # (A) 0.6 k/uL (0-1.0); Monocytes % (A) 6 %; Neutrophils # (A) 5.5 k/uL (1.3-7.7); Neutrophils % (A) 60 %; Platelet Count 323 k/uL (150-450); RBC 4.65 m/uL (4.30-5.90); RDW 18.6 % (11.5-15.5); WBC 9.2 k/uL (3.8-10.6)
[2019-03-05 07:53] LABS: African American GFR (CKD) >90 (>60 ml/min/1.73 sqM); Anion Gap 9 mmol/L; Blood Urea Nitrogen 15 mg/dL (9-20); Calcium 9.2 mg/dL (8.4-10.2); Carbon Dioxide 27 mmol/L (22-30); Chloride 105 mmol/L (98-107); Glucose 90 mg/dL (74-99); Non-African American GFR(CKD) >90 (>60 ml/min/1.73 sqM); Potassium 3.8 mmol/L (3.5-5.1); Sodium 141 mmol/L (137-145)
[2019-03-05] MEDS: ASPIRIN 81 MG PO SCH (09:04)
[2019-03-05] MEDS: ENOXAPARIN 40 MG/0.4 ML SYRINGE SQ SCH (09:04)
[2019-03-05] MEDS: amLODIPine 5 MG TAB PO SCH (09:04)
[2019-03-05] MEDS: MULTIVITAMINS, THERA 1 EACH TAB PO SCH (09:05)
[2019-03-05] MEDS: TAMSULOSIN 0.4 MG CAP.ER.24H PO SCH (09:05)
[2019-03-05] MEDS: FAMOTIDINE 20 MG TAB PO SCH (09:05)
--- NOTE | 2019-03-05 09:06 | US ---
EXAMINATION TYPE: US abdomen limited DATE OF EXAM: 03/05/2019 COMPARISON: NONE CLINICAL HISTORY: R Kidney lesion on CT. ASSESS LIVER AND RT KIDNEY PER PHYSICIAN, patient just had c olon surgery due to cancerous lesion EXAM MEASUREMENTS: Liver Length: 16.8 cm Gallbladder Wall: 0.2 cm CBD: 0.5 cm Right Kidney: 11.7 x 5.3 x 5.5 cm Pancreas: not seen due to bowel gas Liver: 0.4cm small cystic lesion seen on anterior right lobe, otherwise wnl Gallbladder: multiple small stones seen Evidence for sonographic Porter's sign: no CBD: wnl Right Kidney: 3.0cm superior pole cyst IMPRESSION: 1. Simple appearing solitary 0.4 cm hepatic cyst, benign. No suspicious hepatic lesion is seen on tod ay's examination. 2. Cholelithiasis without sonographic evidence of acute cholecystitis. 3. Benign-appearing 3.0 cm right renal cyst (Bosniak type I).
--- NOTE | 2019-03-05 11:05 | P.PN ---
Subjective Progress Note Date: 03/05/19 Principal diagnosis: 03/05/2019 This is a 63-year-old male that has history of colon cancer and was admitted for right hemicolectomy with Dr. Anna and is being followed closely. Patient was resumed on Norvasc 5mg daily and tolerating well. blood pressure is being maintained. patient is eating and drinking and denies any nausea or vomiting. Patient states he is urinating well. Patient states he is passing gas and had a bowel movement this morning. Patient denies any chest pain, shortness of breath, or palpitations at this time. Patient is afebrile. Patient is awaiting for discharge today. Abdominal dressing is dry and intact. Guarded prognosis. Objective - Vital Signs Vital signs: Vital Signs Temp 97.8 F 03/05/19 07:00 Pulse 59 L 03/05/19 07:00 Resp 16 03/05/19 07:00 BP 132/85 03/05/19 07:00 Pulse Ox 95 03/05/19 07:00 Intake & Output 03/04/19 03/05/19 03/05/19 18:59 06:59 18:59 Other: Voiding Method Toilet # Voids 2 - Exam Gen: This is a 63-year-old male sitting up in the recliner in no acute distress. Vital signs are stable. Blood pressure is 132/85, pulse is 59, respirations are 16, temp is 97.8F, pulse ox is 95% on room air. HEENT: Head is atraumatic, normocephalic. Pupils equal, round. Sclerae is anicteric. NECK: Supple. No JVD. No lymphadenopathy. No thyromegaly. LUNGS: Clear to auscultation. No wheezes or rhonchi. No intercostal retractions. HEART: Regular rate and rhythm. No murmur. ABDOMEN: Soft. Bowel sounds are present. No masses. No tenderness. Surgical dressing is dry and intact. EXTREMITIES: No pedal edema. No calf tenderness. NEUROLOGICAL: Patient is awake, alert and oriented x3. Cranial nerves 2 through 12 are grossly intact. Gait is steady. - Labs CBC & Chem 7: 03/05/19 06:54 03/05/19 06:54 Labs: Abnormal Lab Results - Last 24 Hours (Table) 08/06/19 Range/Units 06:54 Hgb 11.8 L (13.0-17.5) gm/dL Hct 36.3 L (39.0-53.0) % MCV 78.2 L (80.0-100.0) fL RDW 18.6 H (11.5-15.5) % Assessment and Plan Assessment: Leukocytosis reactive without any evidence of infection. Current WBC 9.2 Hypertension: Was resumed on Norvasc and will likely go home on 5 mg daily Gastroesophageal reflux disease Sleep apnea continue with CPAP machine at home Benign prostatic hypertrophy status post hemicolectomy with an anastomosis Recommendations and discussion: Recommend continue current medication management and symptomatic treatment. Will continue to monitor closely. Patient will be resumed on oral anti-hypertensives and will go home on Norvasc 5 mg daily. Guarded prognosis. Further recommendations to follow. Patient is expected to go home today.
[2019-03-05] MEDS: LACTATED RINGERS 1,000 ML IV SCH (11:18)
--- NOTE | 2019-03-05 13:44 | P.DS ---
Providers Date of admission: 02/28/19 10:48 Attending physician: Shelia Anna DO Consults: 02/28/19 14:39 Consult Physician Routine Consulting Provider: Kavon Rodriguez Reason/Comments: med mgmt Do you want consulting provider notified?: Yes Primary care physician: Champ Callahan - Discharge Diagnosis(es) (1) Colon cancer Current Visit: Yes Status: Acute Hospital Course: 63-year-old male presented to the hospital for an elective right hemicolectomy secondary to adenocarcinoma of the colon. Postoperatively, the patient was sent to the medical surgical floor. He improved over his admission. He began having bowel function. Ultrasound of the right kidney was also performed during his inpatient stay as an evaluation from a CT finding of a right renal mass. This was evaluated as a cyst on ultrasound. The patient's pain also improved during his admission. He is surgically stable for discharge. All questions were answered prior to his discharge. He is to follow-up as an outpatient for staple removal and follow up with primary care physician for medical management. He will have a referral to oncology as an outpatient. Procedures: Right hemicolectomy Patient Condition at Discharge: Good Plan - Discharge Summary Discharge Rx Participant: No New Discharge Prescriptions: New Ibuprofen [Motrin] 800 mg PO Q8H PRN #20 tab PRN Reason: Pain HYDROcodone/APAP 5-325MG [[place] 5-325] 1 tab PO Q6HR PRN 3 Days #12 tab PRN Reason: Pain Continue Tamsulosin HCl [Flomax] 0.4 mg PO BID Fexofenadine HCl [[place]aria Allergy] 180 mg PO HS Ferrous Sulfate [Iron (65 MG Elemental)] 325 mg PO DAILY B Complex-Vit C-Vit E-Zinc [Z-Bec] 1 tab PO DAILY Multivitamins, Thera [Multivitamin (formulary)] 1 tab PO DAILY Albuterol Sulfate [Proventil Hfa] 1 - 2 puff INHALATION RT-Q6H PRN PRN Reason: Shortness Of Breath Enalapril [Vasotec] 5 mg PO HS Aspirin [Adult Low Dose Aspirin EC] 81 mg PO DAILY Ascorbic Acid [Vitamin C] 1,000 mg PO DAILY Fiber Tabs 2 tab PO DAILY Mupirocin Calcium 2% Cream [Bactroban 2% Cream] 1 applic TOPICAL BID Foaming Acne 10% Topical 1 applic TOPICAL DAILY Changed amLODIPine [Norvasc] 5 mg PO QAM #0 Discharge Medication List Fexofenadine HCl [Rosamaria Allergy] 180 mg PO HS 07/02/18 [History] Tamsulosin HCl [Flomax] 0.4 mg PO BID 07/02/18 [History] Albuterol Sulfate [Proventil Hfa] 1 - 2 puff INHALATION RT-Q6H PRN 01/25/19 [History] Ascorbic Acid [Vitamin C] 1,000 mg PO DAILY 01/25/19 [History] Aspirin [Adult Low Dose Aspirin EC] 81 mg PO DAILY 01/25/19 [History] B Complex-Vit C-Vit E-Zinc [Z-Bec] 1 tab PO DAILY 01/25/19 [History] Enalapril [Vasotec] 5 mg PO HS 01/25/19 [History] Ferrous Sulfate [Iron (65 MG Elemental)] 325 mg PO DAILY 01/25/19 [History] Fiber Tabs 2 tab PO DAILY 01/25/19 [History] Multivitamins, Thera [Multivitamin (formulary)] 1 tab PO DAILY 01/25/19 [History] Foaming Acne 10% Topical 1 applic TOPICAL DAILY 02/26/19 [History] Mupirocin Calcium 2% Cream [Bactroban 2% Cream] 1 applic TOPICAL BID 02/26/19 [History] HYDROcodone/APAP 5-325MG [[place] 5-325] 1 tab PO Q6HR PRN 3 Days #12 tab 03/05/19 [Rx] Ibuprofen [Motrin] 800 mg PO Q8H PRN #20 tab 03/05/19 [Rx] amLODIPine [Norvasc] 5 mg PO QAM #0 03/05/19 [Rx] Follow up Appointment(s)/Referral(s): Shelia Anna DO [Doctor of Osteopathic Medicine] - 10 Days (March 18) Champ Callahan MD [Primary Care Provider] - 1 Week Activity/Diet/Wound Care/Special Instructions: Okay to shower, do not scrub on incisions Okay to increase activity as tolerated No lifting greater than 5 pounds Stay on soft diet as discussed Follow-up as outpatient for staple removal and oncology referral Discharge Disposition: HOME SELF-CARE
[2019-03-05 14:13] VITALS: BP 152/92; PULSE 64; TEMP 98.1
--- NOTE | 2019-03-07 01:00 | CDI ---
Documentation Clarification Form Date: 03/07/19 From: King Nam Phone: call to [phone] Admit Date: 02/28/2019 10:48:00 AM Patient Name: Nader Galloway Visit Number: [id number] Discharge Date: 03/05/2019 2:43:00 PM ATTENTION: The Clinical Documentation Specialists (CDI) and [facility] Coding Staff appreciate your assistance in clarifying documentation. Please respond to the clarification below the line at the bottom and electronically sign. The CDI & [facility] Coding staff will review the response and follow-up if needed. Please note: Queries are made part of the Legal Health Record. If you have any questions, please contact the author of this message via ITS. Dr. Shelia Anna, The final diagnosis of the pathology report states "Two of twenty-three mesenteric lymph nodes positive for metastasis". Documentation states: Colon cancer Patient history/risk factors: colon cancer, ascites. In your professional opinion, do you agree with the pathology report specifying Lymph nodes are consistent with cancer? Yes I agree MTDD
== END 2019-03-05 14:43 | disposition home or self-care (01) | DRG 330 ==
LOC: 2ORMAIN 10:48 → 4SSUR 14:22
PROVIDERS: ADMIT Surgery; ATTEND Surgery
PROC: 0DTF0ZZ Resection of Right Large Intestine, Open Approach (ICD-10-PCS; principal; 2019-02-28 12:30)
DX: C18.9 Malignant neoplasm of colon, unspecified (principal); R18.0 Malignant ascites; C77.2 Secondary and unspecified malignant neoplasm of intra-abdominal lymph nodes; J45.909 Unspecified asthma, uncomplicated; I10 Essential (primary) hypertension; G47.30 Sleep apnea, unspecified; D72.829 Elevated white blood cell count, unspecified; K21.9 Gastro-esophageal reflux disease without esophagitis; N28.89 Other specified disorders of kidney and ureter; N40.0 Benign prostatic hyperplasia without lower urinary tract symptoms; Z79.82 Long term (current) use of aspirin; Z79.899 Other long term (current) drug therapy; Z85.038 Personal history of other malignant neoplasm of large intestine; Z87.891 Personal history of nicotine dependence
CPT/HCPCS: 71045; 76705; 80048; 81001; 85025; 86850; 86900; 86901; 88108; 88305; 88309; 88341; 88342; 94760

== ENCOUNTER → 2019-03-22 | Outpatient (CLI) | payer OTHER ==
--- NOTE | 2019-03-25 15:07 | PE ---
EXAMINATION TYPE: PET CT fusion skull to thigh DATE OF EXAM: 03/22/2019 COMPARISON: CT chest abdomen pelvis dated 02/20/2019 HISTORY: Newly diagnosed ascending colon invasive moderately differentiated adenocarcinoma with focal mucinous differentiation (resection margins negative and 2 of 23 mesenteric lymph nodes positive for metastasis) with no prior chemotherapy or radiation. Surgical resection on 02/28/2019. Currently stage TIII N1 M1. TECHNIQUE: Following the intravenous administration of 11.642 mCi of F-18 FDG, whole body images are performed from the skull base to the midthigh. Images are reviewed on the computer in the coronal, axial, and sagittal planes. Reconstructed rotating images are created on independent workstation and reviewed on the computer. A localization and attenuation correction CT is performed in conjunction with the PET scan. SCAN: First, initial treatment strategy FINDINGS: Mediastinal background: 1.15 Abdominal background: 2.96 SKULL BASE AND NECK: No suspicious hypermetabolic activity. CHEST, MEDIASTINUM, AND HILAR REGION: No suspicious hypermetabolic activity. ABDOMEN AND PELVIS: No suspicious hypermetabolic activity. Mild uptake is seen along the ventral abdo kristy wall, postsurgical change. This has a maximum SUV of 1.57, below abdominal background. OSSEOUS STRUCTURES: No suspicious hypermetabolic activity. OTHER CT: Patient is status post right hemicolectomy. Polypoid mucosal thickening in the maxillary sinuses is seen. There is slight rightward nasal septal deviation. The heart is enlarged. Mild degenerative changes of the spine. Right acetabular lucency ma y be degenerative in nature and less likely related to a lytic lesion. No hypermetabolic activity. Cholelithiasis is incidentally seen. Nonobstructing punctate left renal calculus is also noted. The p reviously seen question solid renal mass is ill-defined without contrast measuring 2.5 cm. Although t his is not hypermetabolic renal cell carcinoma is typically hypometabolic and therefore this remains concerning for neoplasm. Scattered hypoattenuated hepatic lesions are too small to accurately charact erize although could be further evaluated with MRI abdomen. Postsurgical change of the right hemicolectomy is again noted with some surrounding fat stranding, ag ain postsurgical. Ventral abdominal wall incisional site is noted. Left apical bleb is seen. Strand-like areas of subsegmental atelectasis are noted. No concerning pulm onary mass. No gross evidence of mediastinal adenopathy. No pericardial effusion. Very small hiatal h ernia suspected. Mild coronary calcifications are seen. Dystrophic calcification of the left anterior chest wall. Sigmoid diverticulosis is also incidentally seen. Fat filled are patulous inguinal rings are present, left greater than right. Prostate gland is mildly enlarged. IMPRESSION: Postsurgical change of a right hemicolectomy and mesenteric lymph node section. No eviden ce on PET/CT to suggest visceral or osseous metastasis within the chest, abdomen, and or pelvis. No r esidual abnormal lymph nodes.
== END | disposition home or self-care (01) ==
LOC: RADPETMAIN 14:09
PROVIDERS: ATTEND Internal Medicine Hematology & Oncology
DX: R59.0 Localized enlarged lymph nodes (principal); C18.2 Malignant neoplasm of ascending colon; J34.2 Deviated nasal septum; N20.0 Calculus of kidney; M43.00 Spondylolysis, site unspecified; I51.7 Cardiomegaly; K76.9 Liver disease, unspecified; R23.8 Other skin changes; J98.11 Atelectasis; I25.10 Atherosclerotic heart disease of native coronary artery without angina pectoris; K57.30 Diverticulosis of large intestine without perforation or abscess without bleeding; N40.0 Benign prostatic hyperplasia without lower urinary tract symptoms; Z90.49 Acquired absence of other specified parts of digestive tract
CPT/HCPCS: 78815; A9552

== ENCOUNTER 2019-04-04 11:34 | Day surgery (SDC) | payer OTHER ==
[2019-03-28 09:55] VITALS: BMI 32.5
[~2019-04-04 11:34] MED LIST changes: -ALVIMOPAN 12 MG CAPSULE PO ONE; -LIDOCAINE 1% 20 ML VIAL (10MG/ML) FOR IV START INTRADERMA PRN; -MIDAZOLAM 2 MG/2 ML VIAL IV PRN; -ONDANSETRON 4 MG/2 ML VIAL IVP ONE; +Pre Op ABX Message 1 EACH MISC MISCELLANE ONE; -SCOPOLAMINE 1.5MG/72HR PATCH TRANSDERM ONE
[2019-04-04 12:14] VITALS: RESP 16; TEMP 98.5
[2019-04-04] MEDS ORDERED: LIDOCAINE 1% 20 ML VIAL (10MG/ML) FOR IV START INTRADERMA ONE (12:22)
[2019-04-04] MEDS ORDERED: fentaNYL (PF) 50 MCG/ML 2 ML AMP ONE (12:48)
[2019-04-04] MEDS ORDERED: LIDOCAINE 1% INJ 10MG/ML (20 ML MDV) ONE (12:48)
[2019-04-04] MEDS ORDERED: PROPOFOL 10 MG/ML 20 ML VIAL IV ONE (12:48)
[2019-04-04] MEDS ORDERED: MIDAZOLAM 2 MG/2 ML VIAL ONE (12:48)
[2019-04-04] MEDS ORDERED: BUPIVACAINE (PF) 0.25% 30 ML VIAL SQ ONE ×2 (13:08)
[2019-04-04] MEDS ORDERED: HEPARIN SODIUM,PORCINE 100 UNIT/ML 5 ML VIAL IV ONE ×3 (13:08)
--- NOTE | 2019-04-04 13:47 | P.OP ---
Date of Procedure: 04/04/19 Preoperative Diagnosis: Colon cancer Postoperative Diagnosis: Colon cancer Procedure(s) Performed: Mediport placement with fluoroscopy Anesthesia: local Surgeon: Shelia Anna Pathology: none sent Condition: stable Disposition: same day Indications for Procedure: 63-year-old male with recent diagnosis of colon cancer. On metastatic workup, the patient is also noted to have cytology positive for adenocarcinoma in free abdominal fluid. The patient is currently 5 weeks postop from colon resection. He has had a discussion with his oncologist and plan is for chemotherapy. He presents today for placement of Mediport. Operative Findings: Appropriate flush and withdrawal of Mediport Description of Procedure: The patient was brought into the operating suite and placed in supine position on the operating table. Sedation was provided by anesthesia. The patient was then prepped and draped in regular sterile fashion. The right subclavian vein was accessed on the first attempt with the introducer needle. Guidewire was placed. Location was confirmed of the guidewire based on fluoroscopy. Local anesthetic was administered and a pocket for port placement was created just below the guidewire. Hemostasis was maintained. A dilator sheath was then placed over the guidewire under fluoroscopic guidance. Catheter was then placed within the dilator sheath and the dilator sheath was removed. The catheter was then attached to the port and locked into place. The port was placed into the created pocket. Appropriate flush and withdrawal was noted with Fisher needle insertion. The port was secured into place using 3-0 Prolene suture in 2 separate locations. Fluoroscopy was used to confirm appropriate placement. Incision was then closed in layered fashion with 30 and 4-0 Vicryl suture. The patient was awakened in the operating suite and taken to postanesthesia care unit in stable condition. Chest x-ray is pending.
--- NOTE | 2019-04-04 14:17 | XR ---
EXAMINATION TYPE: XR chest 1V DATE OF EXAM: 04/04/2019 COMPARISON: NONE HISTORY: Status post Mediport insertion TECHNIQUE: Single frontal view of the chest is obtained. FINDINGS: Right-sided Mediport terminates in the superior vena cava proximally. Minimal left midlung subsegmental atelectasis. No new focal consolidation, pleural effusion or pneumothorax. Cardiomedias tinal silhouette is upper limits of normal but stable. No acute osseous pathology. IMPRESSION: New right-sided Mediport terminating in the high superior vena cava without postprocedur al pneumothorax.
[2019-04-04 14:27] VITALS: BP 145/91; PULSE 70
--- NOTE | 2019-04-04 14:54 | FL ---
EXAMINATION TYPE: FL guided central line placemt DATE OF EXAM: 04/04/2019 CLINICAL HISTORY: Port-A-Cath insertion. Fluoroscopic documentation. TECHNIQUE: Fluoroscopy. COMPARISON: None. FINDINGS: Fluoroscopic guidance was provided during procedure performed by Dr. Anna. A total of 23 seconds of fluoroscopic time was utilized during the procedure and 2 spot images was acquired. IMPRESSION: As Above.
== END 2019-04-04 14:42 | disposition home or self-care (01) ==
LOC: OR 11:34
PROVIDERS: ATTEND Surgery
DX: C18.9 Malignant neoplasm of colon, unspecified (principal); C77.2 Secondary and unspecified malignant neoplasm of intra-abdominal lymph nodes; I10 Essential (primary) hypertension; J45.909 Unspecified asthma, uncomplicated; G47.33 Obstructive sleep apnea (adult) (pediatric); K21.9 Gastro-esophageal reflux disease without esophagitis; N40.0 Benign prostatic hyperplasia without lower urinary tract symptoms; Z87.891 Personal history of nicotine dependence; Z90.49 Acquired absence of other specified parts of digestive tract; Z91.018 Allergy to other foods; Z79.1 Long term (current) use of non-steroidal anti-inflammatories (NSAID); Z79.82 Long term (current) use of aspirin; Z79.899 Other long term (current) drug therapy; Z98.890 Other specified postprocedural states; Z80.1 Family history of malignant neoplasm of trachea, bronchus and lung; Z80.0 Family history of malignant neoplasm of digestive organs; Z82.49 Family history of ischemic heart disease and other diseases of the circulatory system; Z98.0 Intestinal bypass and anastomosis status; Z99.89 Dependence on other enabling machines and devices
CPT/HCPCS: 36561; 77001; 71045; C1788; J2250; J1644; J1642; J1100; J2001; J3010; J2704

== ENCOUNTER → 2019-06-13 | Outpatient (CLI) | payer MEDICARE, OTHER | END | disposition home or self-care (01) | LOC: LABWHC1 09:50 | PROVIDERS: ATTEND Urology | DX: R97.20 Elevated prostate specific antigen [PSA] (principal) | CPT/HCPCS: 36415; 84153 ==

== ENCOUNTER → 2019-07-01 | Outpatient (CLI) | payer MEDICARE, OTHER ==
[2019-07-01 11:39] LABS: African American GFR (CKD) >90 (>60 ml/min/1.73 sqM); Blood Urea Nitrogen 16 mg/dL (9-20); Non-African American GFR(CKD) >90 (>60 ml/min/1.73 sqM)
--- NOTE | 2019-07-01 14:20 | CT ---
EXAMINATION TYPE: CT ChestAbdPelvis w con DATE OF EXAM: 07/01/2019 COMPARISON: PET/CT dated 03/22/[address] of the chest, abdomen, and pelvis dated 02/20/2019 HISTORY: Colon CA CT DLP: 2276.2 mGycm. Automated Exposure Control for Dose Reduction was Utilized. CONTRAST: CT scan of the thorax, abdomen and pelvis is performed with IV Contrast, patient injected with 100 mL of Isovue 300. FINDINGS: LUNGS: The lungs are grossly clear, there is no concerning parenchymal mass or nodule identified. Lef t upper lobe bleb is seen. There is no pleural effusion or pneumothorax seen. The tracheobronchial tree is patent. MEDIASTINUM: There are no greater than 1 cm hilar or mediastinal lymph nodes. No pericardial effusi on is seen. OTHER: No additional significant abnormality is seen. LIVER/GB: There is low-attenuation of nearly the entirety of the right hepatic lobe with wedge-shaped area of hyperattenuation in segment 6. There appears to be altered hepatic perfusion with no clear v isualization of the left main portal vein, however it is the left hepatic lobe that appears to have n ormal enhancement. In the left hepatic lobe there are 2 subcentimeter too small to accurately charact erize hepatic lesions both measuring 7 mm. Few punctate dependent calculi are seen within the gallbla dder. PANCREAS: No significant abnormality is seen. SPLEEN: No significant abnormality is seen. No splenomegaly. ADRENALS: No new nodule or thickening. KIDNEYS: In the posterior right kidney there is a 2.6 cm mass that appears cystic on the prior ultras ound and hyperdense on the prior PET/CT. This likely represents a hyperdense proteinaceous or hemorrh agic cyst as there is no significant enhancement with precontrast and postcontrast Hounsfield units a re compared on the prior PET/CT and the current CT than a similar Hounsfield unit is seen on delayed images. There is a 2 mm nonobstructive left upper pole renal calculus and a probable left renal cyst measurin g 8 mm, too small to accurately characterize. BOWEL: Right hemicolectomy has been performed. Multiple colonic diverticula are seen without pericolo madeline fat stranding. Postsurgical changes of the ventral abdomen. GENITAL ORGANS: Prostate gland is enlarged and heterogenous left inguinal ring is patulous and fat fi lled. LYMPH NODES: No greater than 1cm abdominal or pelvic lymph nodes are appreciated. OSSEOUS STRUCTURES: Mild multilevel degenerative changes of the spine IMPRESSION: 1. There is abnormal perfusion of the liver versus right hepatic lobe near entire focal fatty infiltr ation. Dynamic enhanced MR of the liver is recommended to further evaluate these findings. 2. The right renal lesion appears cystic on ultrasound and solid on CT, likely a hyperdense hemorrhag ic and/or proteinaceous cyst. Cystic could also be undoubtably confirmed on the above recommended MRI .
== END | disposition home or self-care (01) ==
LOC: RADPROMAIN 10:36
PROVIDERS: ATTEND Internal Medicine Hematology & Oncology
DX: N28.9 Disorder of kidney and ureter, unspecified (principal); C18.2 Malignant neoplasm of ascending colon; Z91.09 Other allergy status, other than to drugs and biological substances
CPT/HCPCS: 82565; 84520; 71260; 74177; 36415; Q9967 ×2

== ENCOUNTER → 2020-01-13 | Outpatient (CLI) | payer MEDICARE, OTHER | END | disposition home or self-care (01) | LOC: LABWHC1 08:10 | PROVIDERS: ATTEND Urology | DX: R97.20 Elevated prostate specific antigen [PSA] (principal) | CPT/HCPCS: 36415; 84153 ==

== ENCOUNTER → 2020-03-16 | Outpatient (CLI) | payer MEDICARE, OTHER ==
[2020-03-16 08:42] LABS: African American GFR (CKD) >90 (>60 ml/min/1.73 sqM); Blood Urea Nitrogen 18 mg/dL (9-20); Non-African American GFR(CKD) >90 (>60 ml/min/1.73 sqM)
--- NOTE | 2020-03-16 10:38 | CT ---
EXAMINATION TYPE: CT ChestAbdPelvis w con DATE OF EXAM: 03/16/2020 COMPARISON: 07/01/2019 HISTORY: follow up colon cancer CT DLP: 2247 mGycm CONTRAST: CT scan of the chest, abdomen and pelvis is performed with Oral Contrast and with IV Contrast, patien t injected with 100 mL of Isovue 300. CT Chest: LUNGS: The lungs are clear and free of infiltrate or atelectasis. No pulmonary nodule or mass is det ected. No pleural effusion or CT evidence of interstitial lung disease. Stable emphysematous bulla l eft lung. MEDIASTINUM: Thoracic aorta is of normal caliber. The heart is not enlarged. No evidence for media stinal mass or adenopathy. HILAR STRUCTURES: No evidence for mass. No hilar adenopathy is appreciated. OTHER: No significant abnormality. CONTRAST CT ABDOMEN AND PELVIS FINDINGS: LIVER/GB: Calcified gallstones noted small in size. Again noted is diffuse decreased attenuation thro ughout most of the right hepatic lobe as well as some medial segment left hepatic lobe. Subcentimeter too small to characterize hepatic hypoattenuating lesions are seen in left lobe measuring up to 7 mm unchanged from prior study. PANCREAS: No inflammation. No distinct mass. SPLEEN: No splenic enlargement. No lesion seen. ADRENALS: No nodule. No thickening. KIDNEYS/BLADDER: No hydronephrosis. No nephrolithiasis. Stable lesion mid pole right kidney posteri kyle with Hounsfield unit of approximately 50. This is unchanged from prior examination and likely re flects a hemorrhagic cyst or proteinaceous cyst. Renal cystic lesion stable left kidney at its mid po le measuring approximately 1 cm. BOWEL: Right hemicolectomy changes noted. Moderate diverticulosis. There is a new midline ventral her partha which contains fat and measures approximately 10 cm in transverse dimension by approximately 4.6 cm in AP dimension. There is also a lower umbilical hernia which contains 2 segments of small bowel. No evidence for obstruction at this time. A third hernia is noted below the umbilicus to the left of midline which contains a short segment of bowel without definite incarceration or strangulation at th is time. No evidence for colonic mass. No small bowel obstruction. GENITAL ORGANS: No gross abnormality. LYMPH NODES: No greater than 1cm abdominal or pelvic lymph nodes are appreciated. AORTA: No significant abnormality. OSSEOUS STRUCTURES: No significant abnormality is seen. OTHER: No significant additional abnormality is seen. IMPRESSION: 1. 3 abdominal wall hernias noted as discussed above. No definite strangulation or incarceration at t his time. 2. Postoperative changes of the right hemicolectomy. No evidence for recurrent or residual mass diana weiner. 3. Stable appearance of the liver.
== END | disposition home or self-care (01) ==
LOC: RADCTMAIN 07:50
PROVIDERS: ATTEND Internal Medicine Hematology & Oncology
DX: K43.9 Ventral hernia without obstruction or gangrene (principal); C18.2 Malignant neoplasm of ascending colon; Z90.49 Acquired absence of other specified parts of digestive tract
CPT/HCPCS: 82565; 84520; 71260; 74177; 36415; Q9967

== ENCOUNTER → 2021-03-16 | Outpatient (CLI) | payer MEDICARE, OTHER ==
[2021-03-16 12:35] LABS: African American GFR (CKD) >90 (>60 ml/min/1.73 sqM); Blood Urea Nitrogen 24 mg/dL (9-20); Non-African American GFR(CKD) >90 (>60 ml/min/1.73 sqM)
--- NOTE | 2021-03-16 16:23 | CT ---
EXAMINATION TYPE: CT ChestAbdPelvis w con DATE OF EXAM: 03/16/2021 COMPARISON: 03/16/2020, 07/01/2019 HISTORY: 65-year-old male C18.2, Colon cancer follow up TECHNIQUE: Contiguous axial scanning of the chest, abdomen, and pelvis performed with IV Contrast, pa tient injected with 100 mL of Isovue 300. Delayed images through the kidneys were obtained. Coronal/s agittal reconstructions performed. CT DLP: 2669.4 mGycm Automated exposure control for dose reduction was used. FINDINGS: CHEST: Heart normal size without pericardial effusion. Mildly ectatic ascending aorta 3.6 cm. Mild atherosclerotic arch calcifications. Bovine configuration to the aortic arch. Right anterior chest wall injection port with catheter tip at the upper SVC. Possible lipoma along the anterior margin of the left latissimus dorsi measuring 6.7 x 2.7 cm, axial image 31, unchanged. No thoracic lymphadenopathy by CT size criteria. Minimal emphysematous change. No consolidation or pleural effusion. ABDOMEN: Small hiatal hernia. A few hypodense hepatic lesions measuring up to 1.6 cm are unchanged. 8mm anterior right liver lobe l esion is unchanged. Fatty infiltration of the liver. Portal venous system is patent. No biliary ductal dilatation. Small layering gallstones. No abnormal gallbladder distention. Adrenal glands, spleen, and pancreas within normal limits. 1.3 cm cortical hypodensity midpole left kidney is unchanged, probable cyst. A 3.3 cm posterior mid to upper pole right kidney lesion shows intermediate attenuation and measured 2.7 cm back on 07/01/2019. There is no significant change in density on delayed kidney images. A hemor rhagic or proteinaceous cyst is favored. No dilated small bowel, free fluid, or free air. No mesenteric or retroperitoneal lymphadenopathy. Interval surgical repair of the patient's previous midline ventral abdominal wall hernias. Sigmoid diverticulosis. Mild stool burden. Oral contrast progressed to the splenic flexure of the col on. No pericolonic inflammatory change. Some surgical change in the right side of the colon with ileo colonic anastomosis near the hepatic flexure. PELVIS: Bladder urine distended. Prostate gland is enlarged measuring 6.5 cm. Patulous left inguinal canal. N o abnormal fluid collection in the pelvis or pelvic lymphadenopathy. BONES: Mild degenerative change of the hips. Mild facet arthropathy lower lumbar spine. No osseous destructi ve process. IMPRESSION: 1. STATUS POST PARTIAL RIGHT HEMICOLECTOMY WITH ILEOCOLONIC ANASTOMOSIS AT THE HEPATIC FLEXURE. NO EV IDENCE FOR LOCAL RECURRENCE OR METASTATIC DISEASE. 2. HYPODENSE HEPATIC LESIONS MEASURING UP TO 1.6 CM ARE UNCHANGED, PROBABLE CYSTS. 3. PROSTATOMEGALY AT 6.5 CM WIDE. CORRELATE WITH PATIENT'S SYMPTOMS AND PSA VALUES. 4. INCIDENTAL: HEPATIC STEATOSIS, SMALL HIATAL HERNIA, INTERVAL SURGICAL REPAIR OF THE PATIENT'S VENT RAL ABDOMINAL WALL HERNIAS, AND SIGMOID DIVERTICULOSIS. A 3.3 CM COMPLICATED CYST ALSO REDEMONSTRATED POSTERIOR RIGHT KIDNEY.
== END | disposition home or self-care (01) ==
LOC: RADCTMAIN 11:16
PROVIDERS: ATTEND Internal Medicine Hematology & Oncology
DX: Z03.89 Encounter for observation for other suspected diseases and conditions ruled out (principal); C18.2 Malignant neoplasm of ascending colon; Z90.49 Acquired absence of other specified parts of digestive tract; K76.9 Liver disease, unspecified; N40.0 Benign prostatic hyperplasia without lower urinary tract symptoms; K76.0 Fatty (change of) liver, not elsewhere classified; K44.9 Diaphragmatic hernia without obstruction or gangrene; K57.30 Diverticulosis of large intestine without perforation or abscess without bleeding; N28.1 Cyst of kidney, acquired
CPT/HCPCS: 82565; 84520; 71260; 74177; J1642; Q9967

== ENCOUNTER → 2021-05-04 | Outpatient (CLI) | payer MEDICARE, OTHER | END | disposition home or self-care (01) | LOC: LABWHC1 08:51 | PROVIDERS: ATTEND Urology | DX: R97.20 Elevated prostate specific antigen [PSA] (principal) | CPT/HCPCS: 36415; 84153 ==

== ENCOUNTER → 2021-11-29 | Outpatient (CLI) | payer MEDICARE, OTHER | END | disposition home or self-care (01) | LOC: LABWHC1 08:19 | PROVIDERS: ATTEND Urology | DX: R97.20 Elevated prostate specific antigen [PSA] (principal) | CPT/HCPCS: 36415; 84153 ==

== ENCOUNTER → 2021-12-20 | Outpatient (CLI) | payer MEDICARE, OTHER ==
--- NOTE | 2021-12-22 04:22 | MR ---
EXAMINATION TYPE: MR abdomen wo/w con DATE OF EXAM: 12/20/2021 COMPARISON: CT abdomen 02/20/2019 HISTORY: RENAL MASS, COLON CANCER CONTRAST: Standard multiplanar, multisequence MRI departmental protocol images were obtained without contrast a nd with 12 mL intravenous Gadavist gadolinium contrast. There are scattered cysts in the liver that measure up to 1.5 cm. The bile ducts are not dilated. No pleural effusion. No sign of pericardial effusion. Spleen is intact. There is no pancreatic mass. The re are multiple small gallstones. The stomach is intact. There is no adrenal mass. Kidneys have normal size. There is rounded 3.5 cm mass in the posterior rig ht kidney which is sharply marginated and does not enhance. This is consistent with a cyst and is 1 c m larger in diameter compared to old CT scan. There is no retroperitoneal adenopathy. Ureters are not dilated. There is no mesenteric edema. No ascites. No evidence of a bowel obstruction. There is normal enhancement of the portal venous system. There is normal enhancement of the inferior vena cava. Left kidney appears normal. IMPRESSION: Nonenhancing sharply marginated lesion in the posterior right kidney consistent with a cyst and sligh tly increased compared to old CT scan. No suspicious renal mass. Multiple small hepatic cysts. Cholelithiasis. No dilated ducts.
== END | disposition home or self-care (01) ==
LOC: RADMRIMAIN 06:53
PROVIDERS: ATTEND Internal Medicine Hematology & Oncology
DX: C18.9 Malignant neoplasm of colon, unspecified (principal); K76.89 Other specified diseases of liver; K80.20 Calculus of gallbladder without cholecystitis without obstruction; N28.89 Other specified disorders of kidney and ureter
CPT/HCPCS: 74183; A9585

== ENCOUNTER → 2022-02-01 | Outpatient (CLI) | payer MEDICARE, OTHER ==
--- NOTE | 2022-02-01 11:51 | NM ---
EXAMINATION TYPE: NM stress cardiolite complete DATE OF EXAM: 02/01/2022 COMPARISON: NONE HISTORY: 66-year-old male I25.10, CAD TECHNIQUE: After the intravenous administration of 9.82 mCi Tc 99m Sestamibi - Rest images obtained 40 minutes post injection. The patient exercised using a VALENTÍN protocol and 1 minute prior to peak exercise was injected with 25.2 mCi Tc 99m Sestamibi - Stress images obtained 15 minutes post injecti on. FINDINGS: Targeted heart rate (130 BPM) was achieved during performance of the study (130 BPM achieved). Total exercise time 7 minutes 31 seconds. Review of stress and rest SPECT images demonstrates moderate-size d perfusion defect anterior wall and inferior wall. The areas appear somewhat larger on rest. No disc rete reversibility is seen. Gated analysis shows normal wall motion with an estimated left ventricul ar ejection fraction of 56 %. TID is normal at 0.70 IMPRESSION: Fixed perfusion defects anterior wall and inferior wall may correspond to old infarcts or prominent attenuation artifact. Clinically correlate. No discrete reversibility is identified.
--- NOTE | 2022-02-01 12:57 | CA ---
Exercise Stress Test Report Name: Nader Galloway Exam Date: 02/01/2022 09:55 Exam Location: [facility] Ht (in): 69 Wt (lb): 265 BSA: 2.33 Ordering Phys: Irma Gandhi MD Referring Phys: Irma Gandhi MD Technologist: Josesito Mayes Age: 66 Gender: M : 1955 Procedure CPT: Indications: CAD ICD-10 Codes: Patient History: Medications: NORVASC, LOSARTAN, FLOWMAX, LOPRESSOR, CURTIS, ASPIRIN, KEYTRUDA Meds past 24 hrs: Pretest Chest Pain: STRESS TEST Protocol Exercise Duration (min:sec): 07:[address] Depressions (mm): Angina Score: Ojeda Score: Resting HR (bpm): 68 Peak HR (bpm): 145 Resting BP (mmHg): 133 / 82 Peak BP (mmHg): 173 / 57 MPHR: 153 Target HR: 130 % MPHR: 95 METS: 9.8 Total Dose: Peak Dose: Atropine: Double Product: 76489 BP Response: Stress Termination: Reached target heart rate Stress Symptoms: SHORT OF BREATH Stress Summary: ECG ANALYSIS Resting ECG: Stress ECG: CONCLUSIONS Excellent exercise tolerance No ST or T-wave abnormalities and response to exercise Cardiac arrhythmia in response to exercise with PVCs and also run of nonsustained V. tach Excellent blood pressure and heart rate response to exercise Please follow up with the Cardiolite portion on a separate report Dr. Roberto Huynh MD (Electronically Signed) Final Date: 01 February 2022 12:57
== END | disposition home or self-care (01) ==
LOC: RADNMMAIN 07:58
PROVIDERS: ATTEND Internal Medicine
DX: I25.10 Atherosclerotic heart disease of native coronary artery without angina pectoris (principal)
CPT/HCPCS: 93017; 78452; A9500

== ENCOUNTER → 2022-04-14 | Outpatient (CLI) | payer MEDICARE, OTHER | END | disposition home or self-care (01) | LOC: LABWHC1 12:12 | PROVIDERS: ATTEND Urology | DX: R97.20 Elevated prostate specific antigen [PSA] (principal) | CPT/HCPCS: 36415; 84153 ==

== ENCOUNTER → 2022-11-28 | Outpatient (CLI) | payer MEDICARE, OTHER | END | disposition home or self-care (01) | LOC: LABWHC1 07:35 | PROVIDERS: ATTEND Urology | DX: R97.20 Elevated prostate specific antigen [PSA] (principal) | CPT/HCPCS: 36415; 84153 ==

== ENCOUNTER → 2023-04-11 | Outpatient (CLI) | payer MEDICARE, OTHER | END | disposition home or self-care (01) | LOC: LABWHC1 13:34 | PROVIDERS: ATTEND Urology | DX: R97.20 Elevated prostate specific antigen [PSA] (principal) | CPT/HCPCS: 36415; 84153; 84154 ==

== ENCOUNTER → 2023-12-19 | Outpatient (CLI) | payer MEDICARE, OTHER | END | disposition home or self-care (01) | LOC: LABWHC1 10:17 | PROVIDERS: ATTEND Urology | DX: R97.20 Elevated prostate specific antigen [PSA] (principal) | CPT/HCPCS: 36415; 84153 ==

== ENCOUNTER → 2024-01-23 | Outpatient (CLI) | payer MEDICARE, OTHER ==
[2024-01-23 10:40] LABS: African American GFR (CKD) >90 (>60 ml/min/1.73 sqM); Blood Urea Nitrogen 19 mg/dL (9-20); Non-African American GFR(CKD) 88 (>60 ml/min/1.73 sqM)
--- NOTE | 2024-01-23 12:27 | CT ---
EXAMINATION TYPE: CT ChestAbdPelvis w con DATE OF EXAM: 01/23/2024 COMPARISON: 04/26/2023 HISTORY: colon ca CT DLP: 2764.5 mGycm CONTRAST: CT scan of the chest, abdomen and pelvis is performed with Oral Contrast and with IV Contrast, patien t injected with 100 mL of Isovue 300. CT Chest: LUNGS: Emphysematous bullae left upper lobe. The lungs are clear and free of infiltrate or atelectasi s. No pulmonary nodule or mass is detected. No pleural effusion or CT evidence of interstitial lung disease. MEDIASTINUM: Thoracic aorta is of normal caliber. The heart is not enlarged. No evidence for media stinal mass or adenopathy. HILAR STRUCTURES: No evidence for mass. No hilar adenopathy is appreciated. OTHER: No significant abnormality. CONTRAST CT ABDOMEN AND PELVIS FINDINGS: LIVER/GB: Moderate hepatic steatosis redemonstrated. There is evidence of cholelithiasis or gallblad jasen wall thickening. No calcified gallstones. No space occupying hepatic lesion. Biliary tree is of normal caliber. PANCREAS: No inflammation. No distinct mass. SPLEEN: No splenic enlargement. No lesion seen. ADRENALS: No nodule. No thickening. KIDNEYS/BLADDER: No hydronephrosis. No nephrolithiasis. 3.7 versus 3.5 cm mass midpole right kidney of increased attenuation with Hounsfield unit measurement of 51. Mass is indeterminate. Mass does de monstrate enlargement since 02/20/2019. Low-grade renal cell carcinoma not excluded. Consider MRI michaelle elation. Simple cyst midpole left kidney measuring 1 cm. BOWEL: Right hemicolectomy change. No evidence for recurrent or residual mass at the surgical bed. Mo derate sigmoid diverticulosis without diverticulitis. No mass identified. No obstructive change seen. Normal bowel caliber. No inflammation. GENITAL ORGANS: No gross abnormality. LYMPH NODES: No greater than 1cm abdominal or pelvic lymph nodes are appreciated. AORTA: No significant abnormality. OSSEOUS STRUCTURES: No significant abnormality is seen. OTHER: No significant additional abnormality is seen. IMPRESSION: 1. No evidence of tumor recurrence or metastatic disease. 2. Indeterminate right renal lesion as noted above.
== END | disposition home or self-care (01) ==
LOC: RADCTMAIN 10:00
PROVIDERS: ATTEND Internal Medicine Hematology & Oncology
DX: C18.2 Malignant neoplasm of ascending colon (principal); I10 Essential (primary) hypertension; D41.10 Neoplasm of uncertain behavior of unspecified renal pelvis; Z71.3 Dietary counseling and surveillance
CPT/HCPCS: 82565; 84520; 71260; 74177; 36415; Q9967

== ENCOUNTER → 2024-02-27 | Outpatient (CLI) | payer MEDICARE, OTHER ==
--- NOTE | 2024-02-27 10:10 | XR ---
EXAMINATION TYPE: XR foot complete LT DATE OF EXAM: 02/27/2024 CLINICAL HISTORY: pain TECHNIQUE: Frontal, lateral and oblique images of the left foot are obtained. COMPARISON: None. FINDINGS: There is no acute fracture/dislocation evident. The joint spaces appear within normal nielson its. Postoperative changes about the first metatarsal phalangeal joint. Sedation plate and screws in place. The overlying soft tissue appears unremarkable. IMPRESSION: There is no acute fracture or dislocation. ICD 10 NO FRACTURE, INITIAL EVALUATION
== END | disposition home or self-care (01) ==
LOC: RADXRMAIN 09:28
PROVIDERS: ATTEND Internal Medicine
DX: M79.672 Pain in left foot (principal)

== ENCOUNTER → 2024-04-30 | Outpatient (CLI) | payer MEDICARE, OTHER | END | disposition home or self-care (01) | LOC: LABWHC1 07:13 | PROVIDERS: ATTEND Urology | DX: R97.20 Elevated prostate specific antigen [PSA] (principal) | CPT/HCPCS: 36415; 84153; 84154 ==

== ENCOUNTER → 2024-06-17 | Outpatient (CLI) | payer MEDICARE, OTHER ==
--- NOTE | 2024-06-17 12:13 | NM ---
EXAMINATION TYPE: NM stress cardiolite complete DATE OF EXAM: 06/17/2024 COMPARISON: 02/01/2022 CLINICAL INDICATION: Male, 68 years old with history of I25.10 ARTERIOSCLEROSIS OF CORONARY I65.23 CA ROTID; TECHNIQUE: After the intravenous administration of 9.8 mCi Tc 99m Sestamibi - Rest images obtained 4 5 minutes post injection. The patient exercised using a VALENTÍN protocol and 1 minute prior to peak e xercise was injected with 25.5 mCi Tc 99m Sestamibi - Stress images obtained 10 minutes post injectio n. FINDINGS: Targeted heart rate was achieved during performance of the study. Review of stress and rest SPECT suzan ges demonstrates no distinct perfusion abnormality. Gated analysis shows normal wall motion with an estimated left ventricular ejection fraction of 40 %. IMPRESSION: No scintigraphic evidence for reversible ischemia [facility] Domenico Coleman, , 06/17/2024 12:11 PM
--- NOTE | 2024-06-17 13:22 | CA ---
Exercise Nuclear Stress Test Report Name: Nader Galloway Exam Date: 06/17/2024 09:36 Exam Location: [facility] Ht (in): 69 Wt (lb): 224 BSA: 2.17 Ordering Phys: Irma Gnadhi MD Referring Phys: JOSE Technologist: Sam Barakat Age: 68 Gender: M : 1955 Procedure CPT: Indications: I25.10 ARTERIOSCLEROSIS OF CORONARY I65.23 CAROTID ICD-10 Codes: Patient History: Medications: Meds past 24 hrs: Pretest Chest Pain: STRESS TEST Paolo Protocol Exercise Duration (min:sec): 06:[address] Depressions (mm): Angina Score: Ojeda Score: Resting HR (bpm): 64 Peak HR (bpm): 132 Resting BP (mmHg): 140 / 88 Peak BP (mmHg): 186 / 77 MPHR: 151 Target HR: 128 % MPHR: 87 METS: 8.3 Total Dose: Peak Dose: Atropine: Double Product: 10579 BP Response: Stress Termination: Reached target heart rate Stress Symptoms: Dyspnea Stress Summary: Patient exercised on Paolo protocol for 6 minutes 45 seconds achieving 8.3 METS. Patient was able to achieve 87% of expected maximal heart rate. ECG ANALYSIS Resting ECG: Sinus bradycardia heart rate 56 beats minute Stress ECmm to 1.[address] depressions in inferolateral leads noticed at peak stress. There were frequent PVCs noticed at the initiation of exercise. The frequency of PVCs reduced during the exercise protocol. CONCLUSIONS Fair exercise tolerance for age achieving 8.3 METS. Normal hemodynamic and clinical response to treadmill exercise Equivocal ECG response to treadmill exercise Please refer to the nuclear portion of the stress test for the complete interpretation of the study Dr Kenneth Guzmán (Electronically Signed) Final Date: 17 June 2024 13:21
--- NOTE | 2024-06-17 13:58 | CA ---
Transthoracic Echo Report Name: Nader Galloway Age: 68 Gender: M : 1955 Exam Date: 06/17/2024 08:33 Exam Location: [facility] Ht (in): 69 Wt (lb): 273 Ordering Physician: Irma Gandhi MD Attending/Referring Phys: Lard Mixer Jessa Whitfield RDCS Procedure CPT: CAD Indications: I25.10 ATHEROSCLEROSIS OF CORONARY Cardiac Hx: Technical Quality: Fair Contrast 1: Total Dose (mL): Contrast 2: Total Dose (mL): MEASUREMENTS (Male / Female) Normal Values 2D ECHO LV Diastolic Diameter PLAX 4.3 cm 4.2 - 5.9 / 3.9 - 5.3 cm LV Systolic Diameter PLAX 2.7 cm IVS Diastolic Thickness 1.2 cm 0.6 - 1.0 / 0.6 - 0.9 cm LVPW Diastolic Thickness 1.3 cm 0.6 - 1.0 / 0.6 - 0.9 cm LV Relative Wall Thickness 0.6 RV Internal Dim ED PLAX 3.1 cm LA Systolic Diameter LX 4.4 cm 3.0 - 4.0 / 2.7 - 3.8 cm LV Diastolic Volume MOD BP 70.0 cm??? 67 - 155 / 56 - 104 cm??? LV Systolic Volume MOD BP 23.6 cm??? 22 - 58 / 19 - 49 cm??? LV Ejection Fraction MOD BP 66.3 % >= 55 % LV Cardiac Index MOD BP 1016.8 cm???/min???m??? LV Diastolic Volume MOD 4C 62.0 cm??? LV Systolic Volume MOD 4C 23.1 cm??? LV Ejection Fraction MOD 4C 62.8 % LV Cardiac Index MOD 4C 851.6 cm???/min???m??? LV Diastolic Length 4C 7.7 cm LV Systolic Length 4C 6.1 cm LV Diastolic Volume MOD 2C 77.6 cm??? LV Systolic Volume MOD 2C 22.4 cm??? LV Ejection Fraction MOD 2C 71.2 % LV Cardiac Index MOD 2C 1209.2 cm???/min???m??? LV Diastolic Length 2C 7.5 cm LV Systolic Length 2C 5.6 cm LA Volume 59.3 cm??? 18 - 58 / 22 - 52 cm??? LA Volume Index 23.6 cm???/m??? 16 - 28 cm???/m??? M-MODE Aortic Root Diameter MM 3.4 cm LA Systolic Diameter MM 3.2 cm LA Ao Ratio MM 0.9 AV Cusp Separation MM 2.1 cm DOPPLER MV Area PHT 2.9 cm??? Mitral E Point Velocity 100.6 cm/s Mitral A Point Velocity 83.9 cm/s Mitral E to A Ratio 1.2 MV Deceleration Time 260.4 ms TR Peak Velocity 253.4 cm/s TR Peak Gradient 25.7 mmHg Right Ventricular Systolic Press 30.7 mmHg FINDINGS Left Ventricle Left ventricular ejection fraction is estimated at 60-65 %. Mildly increased septal wall thickness. Left ventricular cavity size normal. Normal left ventricular systolic function with no obvious regional wall motion abnormalities. Right Ventricle Normal RV size and systolic function, RVSP estimated at 30 mmHg Right Atrium Mild right atrial dilatation. Left Atrium Mildly increased left atrial diameter. Mildly increased left atrial volume. Mitral Valve Structurally normal mitral valve. Mild mitral regurgitation. No mitral stenosis. Aortic Valve Trileaflet aortic valve. No aortic valve stenosis or regurgitation. Tricuspid Valve Structurally normal tricuspid valve. Mild tricuspid regurgitation. No tricuspid stenosis. Pulmonic Valve Structurally normal pulmonic valve. Trace pulmonic regurgitation. No pulmonic stenosis. Pericardium No pericardial or pleural effusion. Aorta Normal size aortic root and proximal ascending aorta. CONCLUSIONS LVEF 60 to 65% Mild concentric LVH No obvious regional wall motion abnormality Mild biatrial dilatation Normal RV size and systolic function, RVSP estimated at 30 mmHg. Mild mitral regurgitation, mild tricuspid regurg Previewed by: Dr Kenneth Guzmán (Electronically Signed) Final Date: 17 June 2024 13:57
--- NOTE | 2024-06-17 16:14 | US ---
EXAMINATION TYPE: US carotid duplex BILAT DATE OF EXAM: 06/17/2024 COMPARISON: NONE CLINICAL INDICATION: Male, 68 years old with history of I25.10 ARTERIOSCLEROSIS OF CORONARY I65.23 CA ROTID; SOB stenosis Additional History: .... TECHNIQUE: Grayscale, color Doppler and spectral Doppler evaluation of the bilateral carotid systems and vertebral arteries. Indirect Doppler criteria was utilized. FINDINGS: EXAM MEASUREMENTS: RIGHT: Peak Systolic Velocity (PSV) cm/sec ----- Right CCA: 85.2 ----- Right ICA: 72.1 ----- Right ECA: 109.9 ICA/CCA ratio: 0.8 RIGHT: End Diastole cm/sec ----- Right CCA: 19.8 ----- Right ICA: 18.3 ----- Right ECA: 19.8 LEFT: Peak Systolic Velocity (PSV) cm/sec ----- Left CCA: 85.2 ----- Left ICA: 67.7 ----- Left ECA: 82.3 ICA/CCA ratio: 0.8 LEFT: End Diastole cm/sec ----- Left CCA: 21.2 ----- Left ICA: 18.3 ----- Left ECA: 12.5 VERTEBRALS (direction of flow): Right Vertebral: Antegrade Left Vertebral: Antegrade Rhythm: Normal DRUG INSPECTOR NOTES: No significant stenosis seen Color Doppler imaging shows patency with blood flow throughout the carotid artery. Spectral waveforms are within normal limits. IMPRESSION: Right: Less than 50% stenosis of the carotid bifurcation. Normal (no stenosis)=ICA PSV < 125 cm/s: ra kartik < 2.0: ICA EDV<40 cm/s. Left: Less than 50% stenosis of the carotid bifurcation. Normal (no stenosis)=ICA PSV < 125 cm/s: rat io < 2.0: ICA EDV<40 cm/s. Criteria for Assigning % of Stenosis / Diameter reduction (Estimation based on the indirect measurements of the internal carotid artery velocities (ICA PSV). 1. Normal (no stenosis)=ICA PSV < 125 cm/s: ratio < 2.0: ICA EDV<40 cm/s. 2. Less than 50% stenosis=ICA PSV < 125 cm/s: ratio < 2.0: ICA EDV<40 cm/s. 3. 50 to 69% stenosis=ICA PSV of 125 to 230 cm/s: ration 2.0 ? 4.0: ICA EDV 40-100 cm/s. 4. Greater than 70% stenosis to near occlusion= ICA PSV > 230 cm/s: ratio > 4.0: ICA EDV > 100 cm/s. 5. Near occlusion= ICA PSV velocities may be low or undetectable: variable ratio and ICA EDV. 6. Total occlusion=unable to detect flow. [facility], Workstation: [id number], 06/17/2024 4:12 PM
== END | disposition home or self-care (01) ==
LOC: RADNMMAIN 07:24
PROVIDERS: ATTEND Internal Medicine
DX: I25.10 Atherosclerotic heart disease of native coronary artery without angina pectoris (principal); I65.23 Occlusion and stenosis of bilateral carotid arteries
CPT/HCPCS: 93017; 93306; 93880; 78452; A9500

== ENCOUNTER → 2024-12-03 | Outpatient (CLI) | payer MEDICARE, OTHER | END | disposition home or self-care (01) | LOC: LABWHC1 08:50 | PROVIDERS: ATTEND Urology | DX: R97.20 Elevated prostate specific antigen [PSA] (principal) | CPT/HCPCS: 36415; 84153 ==